=== PATIENT | female | born 1990 | race Caucasian/White ===

== ENCOUNTER 2016-04-20 21:15 | Emergency (ER) | payer SELFPAY ==
[2016-04-21] MEDS ORDERED: OXYCODONE-ACETAMINOPHEN 5-325 MG TABLET PO ONE (01:36)
[2016-04-21] MEDS ORDERED: ONDANSETRON 4 MG TAB.RAPDIS PO ONE (01:36)
--- NOTE | 2016-04-21 01:38 | ER Document Report ---
ED GI/ - General Chief Complaint: Lower Abdominal Pain Stated Complaint: DIFFICULTY URINATING,BACK PAIN Time seen by provider: 01:30 Notes: Patient is a 25-year-old female that comes emergency department for chief complaint of pain in her lower abdomen, worse in the middle and on the left side , and also pain in both lower parts of her back. She states that she feels like she needs to urinate but then when she tries to she only gets a few drops out and it is painful. She denies injury, fever, nausea or vomiting, vaginal discharge or bleeding. Last menstrual period 2 weeks ago. She does have a history of ovarian cysts. Past medical history of fibromyalgia and chronic lower back pain, takes gabapentin and tramadol. TRAVEL OUTSIDE OF THE [place] IN LAST 30 DAYS: No - Related Data Allergies/Adverse Reactions: Penicillins Adverse Reaction (Verified 04/21/16 02:52) Past Medical History - General Information source: Patient - Social History Smoking Status: Never Smoker Frequency of alcohol use: None Drug Abuse: None Lives with: Family Family History: Reviewed & Not Pertinent Patient has suicidal ideation: No Patient has homicidal ideation: No - Medical History Medical History: Negative Surgical Hx: Negative - Immunizations Immunizations up to date: Yes Hx Diphtheria, Pertussis, Tetanus Vaccination: Yes Review of Systems - Review of Systems Constitutional: No symptoms reported EENT: No symptoms reported Cardiovascular: No symptoms reported Respiratory: No symptoms reported Gastrointestinal: See HPI Genitourinary: See HPI Female Genitourinary: No symptoms reported Musculoskeletal: See HPI Skin: No symptoms reported Hematologic/Lymphatic: No symptoms reported Neurological/Psychological: No symptoms reported Physical Exam - Vital signs Interpretation: Normal - General General appearance: Anxious In distress: None - HEENT Head: Normocephalic, Atraumatic Eyes: Normal Pupils: PERRL - Respiratory Respiratory status: No respiratory distress Chest status: Nontender Breath sounds: Normal Chest palpation: Normal - Cardiovascular Rhythm: Regular Heart sounds: Normal auscultation Murmur: No - Abdominal Inspection: Normal Distension: No distension Bowel sounds: Normal Tenderness: Tender - There is lower abdominal tenderness over the suprapubic and left pelvic area Organomegaly: No organomegaly - Back Back: Normal, Nontender. No: Tender - No saddle anesthesia, no palpable tenderness noted, normal midline exam, normal upper and lower extremity range of motion, normal distal neurovascular exam - Extremities General upper extremity: Normal inspection, Nontender, Normal color, Normal ROM , Normal temperature General lower extremity: Normal inspection, Nontender, Normal color, Normal ROM , Normal temperature, Normal weight bearing. No: Ilya's sign - Neurological Neuro grossly intact: Yes Cognition: Normal Orientation: AAOx4 [place] Coma Scale Eye Opening: Spontaneous [place] Coma Scale Verbal: Oriented [place] Coma Scale Motor: Obeys Commands Estefani Coma Scale Total: 15 Speech: Normal Cranial nerves: Normal Cerebellar coordination: Normal Motor strength normal: LUE, RUE, LLE, RLE Sensory: Normal - Psychological Associated symptoms: Anxious - Skin Skin Temperature: Warm Skin Moisture: Dry Skin Color: Normal Course - Re-evaluation Re-evalutation: Unremarkable back exam, no saddle anesthesia. Normal upper and lower extremity strength, normal distal neurovascular exam. Patient has some tenderness over the lower abdominal area slightly worse on the left side. Ultrasound negative for any cyst or other abnormality, no free fluid. After patient receives straight catheterization her symptoms resolved. Patient declined pelvic exam. Patient given by mouth fluids, discussed that we would wait as she attempted to urinate again, discussed potential neurology referral because of patient's concerns (patient states that she keeps getting random neurologic problems like suddenly dropping items or like today when she was having trouble emptying her bladder). Patient's discharge instructions were prepared as we were waiting for her to urinate, went back to check she had urinated after by mouth fluids, on reentry into the room patient had left. - Laboratory Result Diagrams: 04/21/16 04:20 04/21/16 04:20 Laboratory results interpreted by me: 04/21/16 01:55 Urine Urobilinogen 2.0 H Discharge - Discharge Clinical Impression: Dysuria, Lower abdominal pain Condition: Stable Disposition: HOME, SELF-CARE Additional Instructions: No acute abnormality seen on her examination or workup. Avoid antihistamines currently because of urinary retention tonight, follow-up with primary care for additional management, follow-up with neurology if needed. Return to the emergency department for any returned or new concerning symptoms. Referrals: PAUL RUBY MD [ACTIVE STAFF] - Follow up as needed
[2016-04-21 02:15] LABS: AMORPHOUS SEDIMENT,URINE TRACE /HPF; APPEARANCE,URINE SLIGHTLY-CLOUDY; BILIRUBIN,URINE NEGATIVE (NEGATIVE); GLUCOSE, URINE NEGATIVE (NEGATIVE); KETONES,URINE NEGATIVE (NEGATIVE); LEUKOCYTE ESTERASE,URINE NEGATIVE (NEGATIVE); NITRITE,URINE NEGATIVE (NEGATIVE); PROTEIN,URINE NEGATIVE (NEGATIVE); URINE SPECIFIC GRAVITY 1.021
[2016-04-21 04:35] LABS: ABSOLUTE BASOPHILS # (AUTO) 0.1 10^3/uL (0.0-0.2); ABSOLUTE EOSINOPHILS # (AUTO) 0.3 10^3/uL (0.0-0.6); ABSOLUTE LYMPHOCYTES (AUTO) 2.4 10^3/uL (0.5-4.7); ABSOLUTE MONOCYTES (AUTO) 0.7 10^3/uL (0.1-1.4); ABSOLUTE NEUT (AUTO) 4.9 10^3/uL (1.7-8.2); BASOPHILS % (AUTO) 1.2 % (0-2); EOSINOPHILS % (AUTO) 4.1 % (0-6); HEMATOCRIT 38.3 % (36.0-47.0); HEMOGLOBIN 12.9 g/dL (12.0-15.5); HGB HCT DIFFERENCE 0.4; LYMPHOCYTES % (AUTO) 28.6 % (13-45); MEAN CORPUSCULAR HEMOGLOBIN 30.1 pg (27.0-33.4); MEAN CORPUSCULAR HGB CONC 33.7 g/dL (32.0-36.0); MEAN CORPUSCULAR VOLUME 89 fl (80-97); MONOCYTES % (AUTO) 7.8 % (3-13); RED CELL DISTRIBUTION WIDTH 13.8 % (11.5-14.0); SEGMENTED NEUTROPHILS % (AUTO) 58.3 % (42-78); WHITE BLOOD COUNT 8.4 10^3/uL (4.0-10.5)
[2016-04-21 04:47] LABS: ANION GAP 11 (5-19); BLOOD UREA NITROGEN 15 mg/dL (7-20); CALCIUM 9.3 mg/dL (8.4-10.2); CARBON DIOXIDE 26 mmol/L (22-30); CHLORIDE 104 mmol/L (98-107); CREATININE RESULT 0.61 mg/dL (0.52-1.25); GLUCOSE 105 mg/dL (75-110); SODIUM 140.6 mmol/L (137-145)
== END 2016-04-21 06:19 | disposition home or self-care (01) ==
LOC: ER 21:15
DX: R30.0 Dysuria (principal); R10.30 Lower abdominal pain, unspecified; M54.9 Dorsalgia, unspecified; Z88.0 Allergy status to penicillin
CPT/HCPCS: 99284; 51701; 36415; 85025; 81025; 80048; 81001; 76830; 93976; S0119

== ENCOUNTER → 2016-06-06 | Outpatient (CLI) | payer OTHER | LOC: RAD 06-04 11:37 | DX: M54.5 Low back pain (principal); M47.897 Other spondylosis, lumbosacral region | CPT/HCPCS: 72148 ==

== ENCOUNTER 2017-01-03 15:11 | Emergency (ER) | payer SELFPAY ==
[2017-01-03] MEDS ORDERED: ACETAMINOPHEN 325 MG TABLET PO ONE (15:33)
[2017-01-03 16:08] LABS: ABSOLUTE BASOPHILS # (AUTO) 0.1 10^3/uL (0.0-0.2); ABSOLUTE EOSINOPHILS # (AUTO) 0.3 10^3/uL (0.0-0.6); ABSOLUTE LYMPHOCYTES (AUTO) 2.4 10^3/uL (0.5-4.7); ABSOLUTE MONOCYTES (AUTO) 0.6 10^3/uL (0.1-1.4); ABSOLUTE NEUT (AUTO) 7.8 10^3/uL (1.7-8.2); EOSINOPHILS % (AUTO) 2.5 % (0-6); HEMOGLOBIN 14.3 g/dL (12.0-15.5); HGB HCT DIFFERENCE 0.9; LYMPHOCYTES % (AUTO) 21.3 % (13-45); MEAN CORPUSCULAR HEMOGLOBIN 30.8 pg (27.0-33.4); MEAN CORPUSCULAR VOLUME 91 fl (80-97); MONOCYTES % (AUTO) 5.6 % (3-13); RED BLOOD COUNT 4.63 10^6/uL (3.72-5.28); RED CELL DISTRIBUTION WIDTH 14.2 % (11.5-14.0); SEGMENTED NEUTROPHILS % (AUTO) 69.6 % (42-78); WHITE BLOOD COUNT 11.1 10^3/uL (4.0-10.5)
[2017-01-03 16:22] LABS: ANION GAP 12 (5-19); BLOOD UREA NITROGEN 14 mg/dL (7-20); CALCIUM 10.6 mg/dL (8.4-10.2); CARBON DIOXIDE 27 mmol/L (22-30); CHLORIDE 102 mmol/L (98-107); CREATININE RESULT 0.65 mg/dL (0.52-1.25); GLUCOSE 87 mg/dL (75-110); POTASSIUM 4.2 mmol/L (3.6-5.0); SODIUM 141.1 mmol/L (137-145)
--- NOTE | 2017-01-03 18:06 | RADIOLOGY REPORT (SQ) ---
EXAM DESCRIPTION: U/S OB TRANSVAG W/DOPPLER COMPLETED DATE/TIME: 01/03/2017 5:47 pm REASON FOR STUDY: = preg bleeding? COMPARISON: None. TECHNIQUE: Endovaginal static and realtime grayscale images acquired of the pelvis. Additional selec milagro spectral and color Doppler images recorded. All images stored on PACs. BHC.2 LIMITATIONS: None. FINDINGS: UTERUS: No visualized intrauterine . Uterus is 6.2 x 4.1 x 3.4 cm in size. Cerv ix closed, 2.3 cm in length. RIGHT ADNEXA: Normal ovary with normal vascular flow. Right ovary 2.2 x 1.7 x 1.6 cm. No adnexal free fluid. No adnexal masses. LEFT ADNEXA: Normal ovary with normal vascular flow. Left ovary 2.2 x 1.8 x 1.4 cm No adnexal free fluid. No adnexal masses. FREE FLUID: None. OTHER: No other significant finding. IMPRESSION: NO VISUALIZED INTRA- OR EXTRAUTERINE . bHCG LEVEL TOO LOW TO EXPECT VISUALIZATION OF . ECTOPIC CANNOT BE EXCLUDED. FOLLOW-UP ULTRASOUND AND SERIAL BHCG LEVELS STRONGLY RECOMMENDED TO ACCURATELY ASSESS STATU S. TECHNICAL DOCUMENTATION: JOB ID: [id number]- All Rights Reserved
--- NOTE | 2017-01-03 18:13 | ER Document Report ---
ED General - General Chief Complaint: Vaginal Bleeding Stated Complaint: VAGINAL BLEEDING Time Seen by Provider: 01/03/17 15:30 TRAVEL OUTSIDE OF THE [place] IN LAST 30 DAYS: No - HPI Patient complains to provider of: Vaginal bleeding Notes: Pt presents to the ED with complaints of vaginal bleeding and cramping. Pt states took home test on 12/30/16 and it was positive. Pt states she had light spotting and cramping that progressed into bleeding. Pt states the discharge is dark red. Pt states her LMP was 11/27/16. Pt denies fever. Pt is AOx4 and able to speak in full sentences. Pt is in NAD. Patient is a . Patient states currently taking vitamins. Patient denies any other complaints denies fevers chills nausea vomiting diarrhea. - Related Data Allergies/Adverse Reactions: Penicillins Adverse Reaction (Verified 04/21/16 02:52) Past Medical History - General Last Menstrual Period: 11/27/16 - Social History Smoking Status: Never Smoker Frequency of alcohol use: None Drug Abuse: None Family History: Reviewed & Not Pertinent Renal/ Medical History: Reports: Hx Kidney Stones. Denies: Hx Peritoneal Dialysis - Immunizations Immunizations up to date: Yes Hx Diphtheria, Pertussis, Tetanus Vaccination: Yes Review of Systems - Review of Systems Constitutional: No symptoms reported EENT: No symptoms reported Cardiovascular: No symptoms reported Respiratory: No symptoms reported Gastrointestinal: No symptoms reported Genitourinary: No symptoms reported Female Genitourinary: Vaginal bleeding Musculoskeletal: No symptoms reported Skin: No symptoms reported Hematologic/Lymphatic: No symptoms reported Neurological/Psychological: No symptoms reported Physical Exam - Vital signs Vitals: Temp Pulse Resp BP Pulse Ox 98.6 F 83 18 119/73 99 01/03/17 15:16 01/03/17 15:16 01/03/17 15:16 01/03/17 15:16 01/03/17 15:16 Interpretation: Normal - General General appearance: Appears well, Alert - HEENT Head: Normocephalic, Atraumatic Eyes: Normal Pupils: PERRL - Respiratory Respiratory status: No respiratory distress Chest status: Nontender Breath sounds: Normal Chest palpation: Normal - Cardiovascular Rhythm: Regular Heart sounds: Normal auscultation Murmur: No - Abdominal Inspection: Normal Distension: No distension Bowel sounds: Normal Tenderness: Nontender Organomegaly: No organomegaly - Back Back: Normal, Nontender - Extremities General upper extremity: Normal inspection, Nontender, Normal color, Normal ROM , Normal temperature General lower extremity: Normal inspection, Nontender, Normal color, Normal ROM , Normal temperature, Normal weight bearing. No: Ilya's sign - Neurological Neuro grossly intact: Yes Cognition: Normal Orientation: AAOx4 [place] Coma Scale Eye Opening: Spontaneous [place] Coma Scale Verbal: Oriented [place] Coma Scale Motor: Obeys Commands [place] Coma Scale Total: 15 Speech: Normal Motor strength normal: LUE, RUE, LLE, RLE Sensory: Normal - Psychological Associated symptoms: Normal affect, Normal mood - Skin Skin Temperature: Warm Skin Moisture: Dry Skin Color: Normal Course - Re-evaluation Re-evalutation: 01/03/17 20:31 Patient beta-hCG level returned at 31 ultrasound otherwise is negative. Patient was encouraged follow-up in 2 3 days for repeat beta hCG testing return to the ER if abdominal cramping worsen. Patient states understanding - Vital Signs Vital signs: Temp Pulse Resp BP Pulse Ox 98.1 F 77 20 104/66 100 01/03/17 18:12 01/03/17 18:12 01/03/17 18:12 01/03/17 18:12 01/03/17 18:12 - Laboratory Result Diagrams: 01/03/17 15:49 01/03/17 15:49 Laboratory results interpreted by me: 01/03/17 01/03/17 15:49 15:49 WBC 11.1 H RDW 14.2 H Calcium 10.6 H Beta HCG, Quant 31.20 H Discharge - Discharge Clinical Impression: Vaginal bleeding in Condition: Good Disposition: HOME, SELF-CARE Instructions: Bleeding During Early ([facility]), Ectopic Precaution ([facility]) Additional Instructions: At this time we cannot see a fetus on your ultrasound however your test is positive. I will highly recommend that she follow-up in the next 48-72 hours for repeat blood work. Continue to observe pelvic rest nothing inside in the vagina no sex no toys no tampons. Return to the ER if your symptoms worsen. Forms: Follow-Up Laboratory Testing
[2017-01-03 18:14] VITALS: BP 104/66
== END 2017-01-03 18:39 | disposition home or self-care (01) ==
LOC: ER 15:11
DX: O46.91 Antepartum hemorrhage, unspecified, first trimester (principal); R10.2 Pelvic and perineal pain; R10.9 Unspecified abdominal pain; Z3A.01 Less than 8 weeks gestation of pregnancy
CPT/HCPCS: 36415; 76817; 80048; 84702; 85025; 86900; 86901; 93976; 99284

== ENCOUNTER 2017-01-04 12:05 | Emergency (ER) | payer SELFPAY ==
[2017-01-04 12:35] VITALS: BP 118/67
--- NOTE | 2017-01-04 12:50 | ER Document Report ---
ED General - General Chief Complaint: Vag Bleeding, +preg <12wks Stated Complaint: VAGINAL BLEEDING/4-5WKS Time Seen by Provider: 01/04/17 12:45 Mode of Arrival: Ambulatory Information source: Patient Notes: 26-year-old female presents with complaints of continued vaginal bleeding and cramping. Patient was seen here yesterday had an hCG of 31 with a negative ultrasound. Patient notes cramping has since worsened and she is having bleeding worsening. TRAVEL OUTSIDE OF THE [place] IN LAST 30 DAYS: No - HPI Onset: Yesterday Onset/Duration: Persistent Quality of pain: Cramping Severity: Mild Pain Level: 1 Associated symptoms: None Exacerbated by: Denies Relieved by: Denies Similar symptoms previously: Yes Recently seen / treated by doctor: Yes - Related Data Allergies/Adverse Reactions: Penicillins Adverse Reaction (Verified 01/04/17 12:32) Past Medical History - Social History Smoking Status: Never Smoker Cigarette use (# per day): No Chew tobacco use (# tins/day): No Smoking Education Provided: No Family History: Reviewed & Not Pertinent Patient has suicidal ideation: No Renal/ Medical History: Reports: Hx Kidney Stones. Denies: Hx Peritoneal Dialysis - Immunizations Immunizations up to date: Yes Hx Diphtheria, Pertussis, Tetanus Vaccination: Yes Review of Systems - Review of Systems Notes: REVIEW OF SYSTEMS: CONSTITUTIONAL : Denies fever, chills, or sweats. Denies recent illness. EENT: Denies eye, ear, throat, or mouth pain or symptoms. Denies nasal or sinus congestion or discharge. Denies throat, tongue, or mouth swelling or difficulty swallowing. CARDIOVASCULAR: Denies chest pain. Denies palpitations or racing or irregular heart beat. Denies ankle edema. RESPIRATORY: Denies cough, cold, or chest congestion. Denies shortness of breath, difficulty breathing, or wheezing. GASTROINTESTINAL: Denies abdominal pain or distention. Denies nausea, vomiting , or diarrhea. Denies blood in vomitus, stools, or per rectum. Denies black, tarry stools. Denies constipation. GENITOURINARY: Denies difficulty urinating, painful urination, burning, frequency, blood in urine, or discharge. FEMALE GENITOURINARY: admits to pelvic pain, vaginal bleeding clots MUSCULOSKELETAL: Denies back or neck pain or stiffness. Denies joint pain or swelling. SKIN: Denies rash, lesions or sores. HEMATOLOGIC : Denies easy bruising or bleeding. LYMPHATIC: Denies swollen, enlarged glands. NEUROLOGICAL: Denies confusion or altered mental status. Denies passing out or loss of consciousness. Denies dizziness or lightheadedness. Denies headache. Denies weakness or paralysis or loss of use of either side. Denies problems with gait or speech. Denies sensory loss, numbness, or tingling. Denies seizures. PSYCHIATRIC: Denies anxiety or stress. Denies depression, suicidal ideation, or homicidal ideation. ALL OTHER SYSTEMS REVIEWED AND NEGATIVE. PHYSICAL EXAMINATION: GENERAL: Well-appearing, well-nourished and in no acute distress. HEAD: Atraumatic, normocephalic. EYES: Pupils equal round and reactive to light, extraocular movements intact, conjunctiva are normal. ENT: Nares patent, oropharynx clear without exudates. Moist mucous membranes. NECK: Normal range of motion, supple without lymphadenopathy LUNGS: Breath sounds clear to auscultation bilaterally and equal. No wheezes rales or rhonchi. HEART: Regular rate and rhythm without murmurs ABDOMEN: Soft, nontender, nondistended abdomen. No guarding, no rebound. No masses appreciated. Female : deferred Musculoskeletal: Normal range of motion, no pitting or edema. No cyanosis. NEUROLOGICAL: Cranial nerves grossly intact. Normal speech, normal gait. Normal sensory, motor exams PSYCH: Normal mood, normal affect. SKIN: Warm, Dry, normal turgor, no rashes or lesions noted. Dictation was performed using [employer] voice recognition software Physical Exam - Vital signs Vitals: Temp Pulse Resp BP Pulse Ox 98.6 F 79 18 118/67 98 01/04/17 12:33 01/04/17 12:33 01/04/17 12:33 01/04/17 12:33 01/04/17 12:33 Course - Re-evaluation Re-evalutation: 01/04/17 12:49 Unfortunately expect hCG levels have decreased that this is a miscarriage, labs pending, vitals are stable 01/04/17 14:47 Patient's hCG level has decreased from 31-12 and consistent with miscarriage Patient will be given pain control Strict return precautions regarding infectious process retained products of conception have discussed After performing a Medical Screening Examination, I estimate there is LOW risk for ACUTE APPENDICITIS, BOWEL OBSTRUCTION, ACUTE CHOLECYSTITIS, PERFORATED DIVERTICULITIS, INCARCERATED HERNIA, PANCREATITIS, PELVIC INFLAMMATORY DISEASE, PERFORATED ULCER, ECTOPIC , or TUBO-OVARIAN ABSCESS, thus I consider the discharge disposition reasonable. Also, there is no evidence or peritonitis , sepsis, or toxicity. I have reevaluated this patient multiple times and no significant life threatening changes are noted. The patient and I have discussed the diagnosis and risks, and we agree with discharging home with close follow-up with the understanding that symptoms and presentations can change. We also discussed returning to the Emergency Department immediately if new or worsening symptoms occur. We have discussed the symptoms which are most concerning (e.g., bloody stool, fever, changing or worsening pain, vomiting) that necessitate immediate return. - Vital Signs Vital signs: Temp Pulse Resp BP Pulse Ox 98.6 F 79 18 118/67 98 01/04/17 12:33 01/04/17 12:33 01/04/17 12:33 01/04/17 12:33 01/04/17 12:33 - Laboratory Result Diagrams: 01/04/17 13:53 Laboratory results interpreted by me: 01/04/17 01/04/17 13:53 13:53 RDW 14.2 H Beta HCG, Quant 12.14 H Discharge - Discharge Clinical Impression: Miscarriage Condition: Stable Disposition: HOME, SELF-CARE Instructions: Miscarriage ([facility]) Prescriptions: Hydrocodone/Acetaminophen [[place] 5-325 mg Tablet] 1 tab PO Q6 #14 tablet Referrals: [facility] [Provider Group] - Follow up in 3-5 days
[2017-01-04] MEDS ORDERED: ACETAMINOPHEN 325 MG TABLET PO ONE (13:30)
[2017-01-04 14:05] LABS: ABSOLUTE BASOPHILS # (AUTO) 0.1 10^3/uL (0.0-0.2); ABSOLUTE EOSINOPHILS # (AUTO) 0.3 10^3/uL (0.0-0.6); ABSOLUTE LYMPHOCYTES (AUTO) 2.7 10^3/uL (0.5-4.7); ABSOLUTE MONOCYTES (AUTO) 0.7 10^3/uL (0.1-1.4); BASOPHILS % (AUTO) 1.2 % (0-2); EOSINOPHILS % (AUTO) 2.7 % (0-6); HEMATOCRIT 40.8 % (36.0-47.0); HEMOGLOBIN 14.1 g/dL (12.0-15.5); HGB HCT DIFFERENCE 1.5; LYMPHOCYTES % (AUTO) 27.4 % (13-45); MEAN CORPUSCULAR HEMOGLOBIN 31.3 pg (27.0-33.4); MEAN CORPUSCULAR HGB CONC 34.6 g/dL (32.0-36.0); MEAN CORPUSCULAR VOLUME 90 fl (80-97); MONOCYTES % (AUTO) 7.4 % (3-13); RED BLOOD COUNT 4.52 10^6/uL (3.72-5.28); RED CELL DISTRIBUTION WIDTH 14.2 % (11.5-14.0); SEGMENTED NEUTROPHILS % (AUTO) 61.3 % (42-78); WHITE BLOOD COUNT 9.8 10^3/uL (4.0-10.5)
[2017-01-04] MEDS ORDERED: HYDROCODONE/ACETAMINOPHEN 5-325 MG TABLET PO ONE (14:48)
== END 2017-01-04 14:58 | disposition home or self-care (01) ==
LOC: ER 12:05
DX: O03.9 Complete or unspecified spontaneous abortion without complication (principal)
CPT/HCPCS: 36415; 84702; 85025; 99284

== ENCOUNTER 2017-02-01 00:41 | Emergency (ER) | payer SELFPAY ==
[2017-02-01 01:18] LABS: APPEARANCE,URINE SLIGHTLY-CLOUDY; BILIRUBIN,URINE NEGATIVE (NEGATIVE); GLUCOSE, URINE NEGATIVE (NEGATIVE); KETONES,URINE NEGATIVE (NEGATIVE); LEUKOCYTE ESTERASE,URINE TRACE (NEGATIVE); NITRITE,URINE NEGATIVE (NEGATIVE); PROTEIN,URINE 100 mg/dL (NEGATIVE); URINE SPECIFIC GRAVITY 1.027; UROBILINOGEN,URINE NEGATIVE mg/dL (<2.0)
--- NOTE | 2017-02-01 02:19 | ER Document Report ---
ED GI/ - General Chief Complaint: Abdominal Pain Stated Complaint: LEFT SIDE ABDOMINAL PAIN,BLOOD IN URINE Time Seen by Provider: 02/01/17 02:18 Notes: Patient is a 26-year-old female presents emergency department complaining of sudden onset left flank pain earlier this evening. She states that he came out of nowhere is gotten increasingly worse prior to arrival. She admits to nausea without vomiting. Also admits to an episode of hematuria prior to arrival. Admits to history of kidney stones. Does not have a urologist. Otherwise denies any fever, chills, abdominal pain. Primary care is [facility] TRAVEL OUTSIDE OF THE [place] IN LAST 30 DAYS: No - Related Data Allergies/Adverse Reactions: Penicillins Adverse Reaction (Verified 02/01/17 00:43) Past Medical History - Social History Smoking Status: Current Every Day Smoker Family History: Reviewed & Not Pertinent Renal/ Medical History: Reports: Hx Kidney Stones. Denies: Hx Peritoneal Dialysis - Immunizations Immunizations up to date: Yes Hx Diphtheria, Pertussis, Tetanus Vaccination: Yes Review of Systems - Review of Systems Constitutional: No symptoms reported Cardiovascular: No symptoms reported Respiratory: No symptoms reported Gastrointestinal: No symptoms reported Genitourinary: See HPI -: Yes All other systems reviewed and negative Physical Exam - Vital signs Vitals: Temp Pulse Resp BP Pulse Ox 98.3 F 102 H 22 H 107/74 98 02/01/17 00:45 02/01/17 00:45 02/01/17 00:45 02/01/17 00:45 02/01/17 00:45 - Notes Notes: PHYSICAL EXAM GENERAL: Alert, interacts well. LUNGS: Clear to auscultation bilaterally, no wheezes, rales, or rhonchi. No respiratory distress. HEART: Regular rate and rhythm. No murmurs, gallops, or rubs. ABDOMEN: Soft, nondistended, left suprapubic tenderness.. No guarding, rebound , or rigidity.. Bowel sounds present in all 4 quadrants. EXTREMITIES: Moves all 4 extremities spontaneously. No edema, radial and dorsalis pedis pulses 2/4 bilaterally. No cyanosis. Back: No evidence of CVA tenderness bilaterally. No spinous process or perimuscular tenderness. NEUROLOGICAL: Alert and oriented x4. Normal speech. PSYCH: Normal affect, normal mood. SKIN: Warm, dry, normal turgor. No rashes or lesions noted. Course - Re-evaluation Re-evalutation: 02/01/17 05:37 Patient is a 26-year-old female who is hemodynamic stable, no acute distress afebrile. Vital signs without any evidence of tachycardia, hypotension. patient tolerating p.o. without any difficulty. CT shows evidence of 2.6 mm stone at the UPJ without any evidence of hydronephrosis. No evidence of acute renal failure noted on chemistry. White blood cell count is 13 without evidence of left shift. 1+ blood cells in the urine with trace leukoesterase. Given these findings, low clinical suspicion for an infected stone. Patient given strict return precautions. Otherwise will discharge home on antibiotic complaint for urology follow-up. - Vital Signs Vital signs: Temp Pulse Resp BP Pulse Ox 98.8 F 87 18 113/80 99 02/01/17 06:20 02/01/17 06:20 02/01/17 06:20 02/01/17 06:20 02/01/17 06:20 - Laboratory Result Diagrams: 02/01/17 03:45 02/01/17 04:31 Laboratory results interpreted by me: 02/01/17 02/01/17 00:51 03:45 WBC 13.3 H RDW 14.1 H Absolute Neutrophils 9.6 H Urine Protein 100 H Urine Blood LARGE H Ur Leukocyte Esterase TRACE H - Diagnostic Test Radiology reviewed: Image reviewed, Reports reviewed Discharge - Discharge Clinical Impression: Left nephrolithiasis Condition: Good Disposition: HOME, SELF-CARE Additional Instructions: Please return to the ER with worsening pain, vomiting that is not responding to nausea medication, fevers, chills KIDNEY STONE: You are passing or have passed a kidney stone. These stones are usually due to increased calcium or uric acid concentrations in your urine. Stones within the kidney itself are not painful. The pain occurs as the stone leaves the kidney to pass down the long tube, called the ureter, leading to the bladder. If the stone is small, it will usually pass by itself. Most patients can pass the stone at home. You will usually receive medications for pain, nausea or vomiting, and sometimes a medication to assist in passing the kidney stone. However, if the pain is very severe or if vomiting prevents you from taking oral pain medications, you may need to return for further treatment. Drink three or four quarts of fluids per day. You will be given pain medication (if needed) and urine strainers. Strain all your urine to see if the stone passes. If your doctor has asked you to bring the stone in for analysis, return with the stone once it has passed. Return if pain or vomiting become severe, if you develop a high fever, if you are unable to pass your urine, or if other unusual symptoms occur. PAIN MEDICATION INJECTION: You have received an injection of a pain medication. You should experience significant pain relief within 45 minutes. This drug is a narcotic - - it will impair your judgement, slow your reaction time and make you sleepy ( as well as relieve your pain). Narcotics also can cause nausea. You should not drive, work with machinery, or perform any task requiring mental alertness until all effects of the medication are gone -- six to eight hours. Do not take any alcohol, or sedatives, and do not take any other medication without checking with your physician. ANTINAUSEA MEDICATION: You have been given a medication to suppress nausea and vomiting. This type of medication can be given as a shot, pill, or suppository. It will usually last for many hours. Pills and shots usually last six to eight hours, suppositories last about 12 hours. For the typical illness, only one or two doses of the medication may be necessary. Mild lightheadedness may occur. This type of medicine can cause drowsiness. Do not drive or operate dangerous machinery while under its influence. Do not mix with alcohol. See your doctor at once if you have muscle spasms or tightness, or uncontrollable motions (particularly of the neck, mouth, or jaw). Persistent vomiting or severe lightheadedness should also be evaluated by the physician. ORAL NARCOTIC MEDICATION: You have been given a prescription for pain control. This medication is a narcotic. It's best taken with food, as nausea can result if taken on an empty stomach. Don't operate machinery or drive within six hours of taking this medication. Do not combine this medicine with alcohol, or with any medication which can cause sedation (such as cold tablets or sleeping pills) unless you get permission from the physician. Narcotics tend to cause constipation. If possible, drink plenty of fluids and eat a diet high in fiber and fruits. Please be aware that prescription narcotics also have the potential for abuse. People become addicted to these medications because of the general sense of wellbeing that they induce. This feeling along with a significant reduction in tension, anxiety, and aggression provides a stimulating seductive quality to these drugs. Once your pain is under control, we encourage you to discard your unused narcotics. FLOMAX (tamsulosin): Flomax is a medicine that shrinks the prostate gland. It helps relieve symptoms of benign prostatic hypertrophy, such as frequent urination, weak stream, and inadequate emptying. It has been shown to dilate the ureter (tube leading from the kidney to the bladder) and help in passing kidney stones Flomax usually causes no side effects. You may notice slight tiredness and dizziness for a few days. Some patients develop nasal congestion. Rarely, impotence can occur. If the symptoms are bothersome and don't improve with continued use, call your doctor. Contact your doctor or return if you have fainting spells, severe weakness or dizziness, shortness of breath, or rash. FOLLOW-UP CARE: If you have been referred to a physician for follow-up care, call the physician s office for an appointment as you were instructed or within the next two days. If you experience worsening or a significant change in your symptoms, notify the physician immediately or return to the Emergency Department at any time for re-evaluation. Prescriptions: Ciprofloxacin HCl [Cipro 500 mg Tablet] 500 mg PO BID #14 tablet Ondansetron [Zofran Odt 4 mg Tablet] 1 - 2 tab PO Q4H PRN #15 tab.rapdis PRN Reason: For Nausea/Vomiting Oxycodone HCl/Acetaminophen [Percocet 5-325 mg Tablet] 1 - 2 tab PO Q4H PRN #15 tablet PRN Reason: Tamsulosin HCl [Flomax] 0.4 mg PO DAILY #10 cap.er.24h Referrals: [facility] [Provider Group] - Follow up as needed
[2017-02-01] MEDS ORDERED: MORPHINE SULFATE 10 MG/ML INJ IV ONE ×2 (03:53→05:34)
[2017-02-01 04:09] LABS: ABSOLUTE BASOPHILS # (AUTO) 0.1 10^3/uL (0.0-0.2); ABSOLUTE EOSINOPHILS # (AUTO) 0.2 10^3/uL (0.0-0.6); ABSOLUTE LYMPHOCYTES (AUTO) 2.6 10^3/uL (0.5-4.7); ABSOLUTE MONOCYTES (AUTO) 0.8 10^3/uL (0.1-1.4); ABSOLUTE NEUT (AUTO) 9.6 10^3/uL (1.7-8.2); BASOPHILS % (AUTO) 0.7 % (0-2); EOSINOPHILS % (AUTO) 1.7 % (0-6); HEMATOCRIT 38.2 % (36.0-47.0); HGB HCT DIFFERENCE 0.8; LYMPHOCYTES % (AUTO) 19.3 % (13-45); MEAN CORPUSCULAR HEMOGLOBIN 30.6 pg (27.0-33.4); MEAN CORPUSCULAR HGB CONC 33.9 g/dL (32.0-36.0); MEAN CORPUSCULAR VOLUME 90 fl (80-97); RED BLOOD COUNT 4.24 10^6/uL (3.72-5.28); RED CELL DISTRIBUTION WIDTH 14.1 % (11.5-14.0); SEGMENTED NEUTROPHILS % (AUTO) 72.3 % (42-78); WHITE BLOOD COUNT 13.3 10^3/uL (4.0-10.5)
--- NOTE | 2017-02-01 04:18 | RADIOLOGY REPORT (SQ) ---
EXAM DESCRIPTION: CT LTD RENAL STONE PROTOCOL ON COMPLETED DATE/TIME: 02/01/2017 4:10 am REASON FOR STUDY: left flank pain, hematuria COMPARISON: None. TECHNIQUE: CT scan of the abdomen and pelvis performed without intravenous or oral contrast. Images reviewed with lung, soft tissue, and bone windows. Reconstructed coronal and sagittal MPR images revi ewed. All images stored on PACS. All CT scanners at this facility use dose modulation, iterative reconstruction, and/or weight based d osing when appropriate to reduce radiation dose to as low as reasonably achievable (ALARA). [facility]: Dose Right [facility]: CareDose [facility]: Dose Right [facility]: Teradose 4D [facility]: [employer] RADIATION DOSE: mGy. LIMITATIONS: None. FINDINGS: LOWER CHEST: No significant findings. No nodules or infiltrates. NON-CONTRASTED LIVER, SPLEEN, ADRENALS: Evaluation limited by lack of IV contrast. No identified sign ificant masses. PANCREAS: No masses. No peripancreatic inflammatory changes. GALLBLADDER: No identified stones by CT criteria. No inflammatory changes to suggest cholecystitis. RIGHT KIDNEY AND URETER: No suspicious masses. Assessment limited by lack of IV contrast. No signif icant calcifications. No hydronephrosis or hydroureter. LEFT KIDNEY AND URETER: No suspicious masses. Assessment limited by lack of IV contrast. 2.6 mm vaughn culus UV junction. No hydronephrosis or hydroureter. AORTA AND RETROPERITONEUM: No aneurysm. No retroperitoneal masses or adenopathy. BOWEL AND PERITONEAL CAVITY: No obvious masses or inflammatory changes. No free fluid. APPENDIX: Normal. PELVIS, BLADDER, AND ABDOMINAL WALL:No abnormal masses. No free fluid. Bladder normal. BONES: No significant findings. OTHER: No other significant finding. IMPRESSION: 2.6 mm calculus UV junction on the left. No hydronephrosis or hydroureter. COMMENT: Quality ID # [id number]: Final reports with documentation of one or more dose reduction techniques (e.g., Automated exposure control, adjustment of the mA and/or kV according to patient size, use of iterative reconstruction technique) TECHNICAL DOCUMENTATION: JOB ID: [id number] [employer]- All Rights Reserved
[2017-02-01 05:12] LABS: ALANINE AMINOTRANSFERASE 38 U/L (9-52); ALBUMIN 4.2 g/dL (3.5-5.0); ALKALINE PHOSPHATASE 109 U/L (38-126); ANION GAP 11 (5-19); ASPARTATE AMINO TRANSFERASE 22 U/L (14-36); BILIRUBIN,DIRECT 0.4 mg/dL (0.0-0.4); BILIRUBIN,TOTAL 0.5 mg/dL (0.2-1.3); BLOOD UREA NITROGEN 13 mg/dL (7-20); CALCIUM 9.5 mg/dL (8.4-10.2); CARBON DIOXIDE 24 mmol/L (22-30); CHLORIDE 106 mmol/L (98-107); GLUCOSE 99 mg/dL (75-110); POTASSIUM 4.1 mmol/L (3.6-5.0); SODIUM 141.1 mmol/L (137-145); TOTAL PROTEIN 7.1 g/dL (6.3-8.2)
[2017-02-01] MEDS ORDERED: ONDANSETRON HCL INJ/PF 4 MG/2 ML SDV IV ONE (05:34)
[2017-02-01 06:23] VITALS: BP 113/80
== END 2017-02-01 06:10 | disposition home or self-care (01) ==
LOC: ER 00:41
DX: N20.1 Calculus of ureter (principal); R11.0 Nausea; R31.9 Hematuria, unspecified; R10.9 Unspecified abdominal pain; F17.200 Nicotine dependence, unspecified, uncomplicated
CPT/HCPCS: 99284; 36415; 87086; 85025; 81025; 80053; 81001; 76380; J2270; J2405

== ENCOUNTER → 2017-07-29 | Outpatient (CLI) | payer OTHER ==
--- NOTE | 2017-07-29 17:32 | RADIOLOGY REPORT (SQ) ---
EXAM DESCRIPTION: HYSTEROSALPINGOGRAM COMPLETED DATE/TIME: 07/29/2017 5:11 pm REASON FOR STUDY: INFERTILITY COMPARISON: CT abdomen pelvis 02/01/2017 PROCEDURE: PRE-PROCEDURE: Procedure was explained to the patient. She was told to expect cramping du ring the procedure, and possible spotting post procedure. PROCEDURE: Under direct visual inspection, the cervix was cannulated with the hysterosalpingogram ca theter and contrast injected. TECHNIQUE: Temporal fluoroscopic images acquired during the procedure stored to PACS. FLUOROSCOPY TIME: Less than 10 seconds 9 digital radiographic images saved to PACS. LIMITATIONS: None. FINDINGS: UTERUS: No identified anomalies. No synechia. RIGHT ADNEXA: Normal size fallopian tube. Free spill of contrast into the peritoneal cavity. LEFT ADNEXA: Normal size fallopian tube. Free spill of contrast into the peritoneal cavity. POST PROCEDURE: The patient tolerated the procedure with no adverse effects. IMPRESSION: NORMAL HYSTEROSALPINGOGRAM. COMMENT: Quality ID 145: Final reports for procedures using fluoroscopy that document radiation exp osure indices, or exposure time and number of fluorographic images (if radiation exposure indices are not available) TECHNICAL DOCUMENTATION: JOB ID: [id number] [employer]- All Rights Reserved Reading location - IP/workstation name: [email or web address]
== END ==
LOC: RAD 15:11
PROVIDERS: ATTEND Student in an Organized Health Care Education/Training Program
DX: N97.9 Female infertility, unspecified (principal)
CPT/HCPCS: 74740

== ENCOUNTER → 2017-08-24 | Outpatient (CLI) | payer OTHER ==
--- NOTE | 2017-08-24 10:17 | RADIOLOGY REPORT (SQ) ---
EXAM DESCRIPTION: T SPINE AP/LAT COMPLETED DATE/TIME: 08/24/2017 9:15 am REASON FOR STUDY: PAIN IN T SP (M54.6) COMPARISON: None. NUMBER OF VIEWS: Two views. TECHNIQUE: AP and lateral radiographic images acquired of the thoracic spine. LIMITATIONS: None. FINDINGS: MINERALIZATION: Normal. ALIGNMENT: Normal. No scoliosis. VERTEBRAE: No fracture or bone lesion. Maintained height, normal segmentation. DISCS: No significant loss of height or significant narrowing. No large osteophytes. HARDWARE: None in the spine. MEDIASTINUM AND SOFT TISSUES: Normal heart size and aortic contour. No soft tissue abnormality. VISUALIZED LUNG ESCALERA: Clear. OTHER: No other significant finding. IMPRESSION: NO SIGNIFICANT RADIOGRAPHIC FINDING IN THE THORACIC SPINE. TECHNICAL DOCUMENTATION: JOB ID: [id number] [employer]- All Rights Reserved Reading location - IP/workstation name: [email or web address]
--- NOTE | 2017-08-24 10:19 | RADIOLOGY REPORT (SQ) ---
EXAM DESCRIPTION: CERV SP 4 OR 5 VIEWS COMPLETED DATE/TIME: 08/24/2017 9:15 am REASON FOR STUDY: CERVICALGIA (M54.2) COMPARISON: None. NUMBER OF VIEWS: Five views. TECHNIQUE: AP, lateral, obliques and odontoid radiographic images acquired of the cervical spine. LIMITATIONS: None. FINDINGS: MINERALIZATION: Normal. ALIGNMENT: Reverse angulation. Muscle spasm versus positioning. VERTEBRAE: Vertebral bodies of normal height. DISCS: No significant osteophytes or sclerosis. Disc height maintained. FORAMINA: No osteophytes or foraminal narrowing. LATERAL AND POSTERIOR ELEMENTS: Facets, lateral masses and spinous processes without significant find ings. HARDWARE: None in the spine. SOFT TISSUES: No masses or calcifications. Lung apices clear. OTHER: No other significant finding. IMPRESSION: Reverse angulation on the lateral projection that may be related to positioning versus m uscle spasm. Study is otherwise unremarkable. TECHNICAL DOCUMENTATION: JOB ID: [id number] [employer]- All Rights Reserved Reading location - IP/workstation name: [email or web address]
--- NOTE | 2017-08-24 10:19 | RADIOLOGY REPORT (SQ) ---
EXAM DESCRIPTION: SACROILIAC JOINTS 3 OR MORE COMPLETED DATE/TIME: 08/24/2017 9:15 am REASON FOR STUDY: SACROILIAC PAIN (M53.3) COMPARISON: None. NUMBER OF VIEWS: Three views. TECHNIQUE: AP and oblique views of the sacroiliac joints. LIMITATIONS: None. FINDINGS: MINERALIZATION: Normal. BONES: No acute fracture or dislocation. No worrisome bone lesions. No significant osteophytes. JOINTS: The sacroiliac joints are patent. No unusual widening, sclerosis, or fusion. SOFT TISSUES: No soft tissue swelling. No radio-opaque foreign body. OTHER: No other significant finding. IMPRESSION: NORMAL STUDY OF THE SACROILIAC JOINTS. TECHNICAL DOCUMENTATION: JOB ID: [id number] [employer]- All Rights Reserved Reading location - IP/workstation name: [email or web address]
== END ==
LOC: RAD 08:52
PROVIDERS: ATTEND Pain Medicine Pain Medicine
DX: M54.6 Pain in thoracic spine (principal); M54.2 Cervicalgia; M53.3 Sacrococcygeal disorders, not elsewhere classified
CPT/HCPCS: 72050; 72070; 72202

== ENCOUNTER → 2018-04-07 | Outpatient (CLI) | payer OTHER | LOC: OD 11:09 | PROVIDERS: ATTEND Student in an Organized Health Care Education/Training Program | DX: O09.811 Supervision of pregnancy resulting from assisted reproductive technology, first trimester (principal) | CPT/HCPCS: 36415; 84702 ==

== ENCOUNTER 2018-04-17 23:51 | Emergency (ER) | payer OTHER ==
[2018-04-17 23:58] VITALS: BP 110/65
--- NOTE | 2018-04-18 00:25 | ER Document Report ---
ED General - General Mode of Arrival: Ambulatory Information source: Patient TRAVEL OUTSIDE OF THE [place] IN LAST 30 DAYS: No <ABHAY KYLE - Last Filed: 04/18/18 00:30> <SARA MALDONADO - Last Filed: 04/18/18 02:03> - General Chief Complaint: Lower Abdominal Pain Stated Complaint: ABDOMINAL PAIN Time Seen by Provider: 04/18/18 00:12 Notes: Patient is a 27 year old female, approximately 6 weeks with twins, presents to the emergency department complaining of lower abdominal pain onset today. Patient states the pain is intermittent and primarily located on the left side. She further describes the pain as a cramping. Patient states she has a history of ovarian cysts and expresses concern of a possible rupture. Patient denies any vaginal bleeding. Patient is currently taking progesterone, metformin (PCOS) and 10mg of Hydrocodone 4x daily for back pain. (ABHAY KYLE) - Related Data Allergies/Adverse Reactions: Penicillins Adverse Reaction (Verified 02/01/17 00:43) Past Medical History - General Information source: Patient - Social History Smoking Status: Unknown if Ever Smoked Family History: Reviewed & Not Pertinent Endocrine Medical History: Reports: Other - PCOS Renal/ Medical History: Reports: Hx Kidney Stones Past Surgical History: Reports: Other - Microdiscectomy, 1 level. - Immunizations Immunizations up to date: Yes Hx Diphtheria, Pertussis, Tetanus Vaccination: Yes <ABHAY KYLE - Last Filed: 04/18/18 00:30> Review of Systems - Review of Systems Constitutional: No symptoms reported EENT: No symptoms reported Cardiovascular: No symptoms reported Respiratory: No symptoms reported Gastrointestinal: See HPI, Abdominal pain Genitourinary: No symptoms reported Female Genitourinary: No symptoms reported Musculoskeletal: No symptoms reported Skin: No symptoms reported Hematologic/Lymphatic: No symptoms reported Neurological/Psychological: No symptoms reported -: Yes All other systems reviewed and negative <ABHAY KYLE - Last Filed: 04/18/18 00:30> Physical Exam <ABHAY KYLE - Last Filed: 04/18/18 00:30> - Vital signs Vitals: Temp Pulse Resp BP Pulse Ox 98.6 F 91 16 110/65 98 04/17/18 23:55 04/17/18 23:55 04/17/18 23:55 04/17/18 23:55 04/17/18 23:55 - Notes Notes: GENERAL: Alert, interacts well. No acute distress. HEAD: Normocephalic, atraumatic. EYES: Pupils equal, round, and reactive to light. Extraocular movements intact. ENT: Oral mucosa moist, tongue midline. NECK: Full range of motion. Supple. Trachea midline. LUNGS: Clear to auscultation bilaterally, no wheezes, rales, or rhonchi. No respiratory distress. HEART: Regular rate and rhythm. No murmurs, gallops, or rubs. ABDOMEN: Soft, obese, non-tender. Non-distended. Bowel sounds present in all 4 quadrants. EXTREMITIES: Moves all 4 extremities spontaneously. NEUROLOGICAL: Alert and oriented x3. Normal speech. PSYCH: Normal affect, normal mood. SKIN: Warm, dry, normal turgor. No rashes or lesions noted. (ABHAY KYLE) Course - Laboratory Result Diagrams: 04/18/18 00:40 <SARA MALDONADO - Last Filed: 04/18/18 02:03> - Vital Signs Vital signs: Temp Pulse Resp BP Pulse Ox 98.6 F 91 16 110/65 98 04/17/18 23:55 04/17/18 23:55 04/17/18 23:55 04/17/18 23:55 04/17/18 23:55 - Laboratory Laboratory results interpreted by me: 04/18/18 04/18/18 04/18/18 00:40 00:40 00:44 WBC 13.0 H RDW 14.1 H Absolute Neutrophils 8.7 H Beta HCG, Quant 83741.00 H Ur Leukocyte Esterase TRACE H Discharge <ABHAY KYLE - Last Filed: 04/18/18 00:30> <SARA MALDONADO - Last Filed: 04/18/18 02:03> - Discharge Clinical Impression: Pelvic cramping, Early stage of , Ovarian cyst affecting in first trimester, antepartum Condition: Stable Disposition: HOME, SELF-CARE Additional Instructions: Pelvic Pain in Lower abdominal pain during can have many causes. We look for seriou s causes such as appendicitis, tubal , miscarriage, placental separation, or urinary tract infection. Less serious causes of pain include corpus luteum cyst (ovarian cyst of ) or stretching of the pelvic tissues by the enlarging uterus. Sometimes the pain comes from the bowels. If no specific cause for the pain is found, we attribute the pain to stretching of the uterine ligaments. This is called "round ligament strain." It is not dangerous. Just rest until the pain goes away. Call us or come back for reexamination if any problems occur, such as: (1) Pain that becomes more severe, steady, or becomes concentrated in one specific area. Also, pain that is more severe with movement or coughing. (2) Vomiting that persists or becomes more frequent. (3) Blood in the vomitus, urine, or bowel movements. Blood in the stool may have a tarry or black appearance. (4) Shaking chills or fever greater than 100 degrees. (5) The abdomen becomes more distended or swollen. (6) Bowel movements cease. (7) Vaginal bleeding. You were provided copies of your 2 most recent hCG hormone levels. You are also provided copy of the ultrasound done this evening showing twin viable intrauterine is with bilateral ovarian cysts. You should follow-up with your [employer] doctor this week for recheck. RETURN TO THE EMERGENCY ROOM IF ANY NEW OR WORSENING SYMPTOMS. Referrals: BRYAN QUIROZ MD [Primary Care Provider] - Follow up in 3-5 days Scribe Attestation: 04/18/18 00:33 I personally performed the services described in the documentation, reviewed and edited the documentation which was dictated to the scribe in my presence, and it accurately records my words and actions. (SARA MALDONADO) Scribe Documentation - Scribe Written by Manolo:: Manolo Sanderson, 04/18/2018 00:27 acting as scribe for :: Philip <ABHAY KYLE - Last Filed: 04/18/18 00:30>
[2018-04-18 01:04] LABS: ABSOLUTE BASOPHILS # (AUTO) 0.1 10^3/uL (0.0-0.2); ABSOLUTE EOSINOPHILS # (AUTO) 0.3 10^3/uL (0.0-0.6); ABSOLUTE MONOCYTES (AUTO) 0.8 10^3/uL (0.1-1.4); ABSOLUTE NEUT (AUTO) 8.7 10^3/uL (1.7-8.2); BASOPHILS % (AUTO) 0.8 % (0-2); EOSINOPHILS % (AUTO) 2.1 % (0-6); HEMATOCRIT 36.8 % (36.0-47.0); HEMOGLOBIN 12.4 g/dL (12.0-15.5); LYMPHOCYTES % (AUTO) 23.4 % (13-45); MEAN CORPUSCULAR HEMOGLOBIN 30.3 pg (27.0-33.4); MEAN CORPUSCULAR HGB CONC 33.6 g/dL (32.0-36.0); MEAN CORPUSCULAR VOLUME 90 fl (80-97); MONOCYTES % (AUTO) 6.5 % (3-13); PLATELET COUNT 379 10^3/uL (150-450); RED BLOOD COUNT 4.07 10^6/uL (3.72-5.28); RED CELL DISTRIBUTION WIDTH 14.1 % (11.5-14.0); SEGMENTED NEUTROPHILS % (AUTO) 67.2 % (42-78); TOTAL CELLS COUNTED % (AUTO) 100 %
[2018-04-18 01:14] LABS: APPEARANCE,URINE SLIGHTLY-CLOUDY; BILIRUBIN,URINE NEGATIVE (NEGATIVE); COLOR,URINE YELLOW; GLUCOSE, URINE NEGATIVE (NEGATIVE); KETONES,URINE NEGATIVE (NEGATIVE); LEUKOCYTE ESTERASE,URINE TRACE (NEGATIVE); NITRITE,URINE NEGATIVE (NEGATIVE); PROTEIN,URINE NEGATIVE (NEGATIVE); UROBILINOGEN,URINE NEGATIVE mg/dL (<2.0)
--- NOTE | 2018-04-18 01:37 | RADIOLOGY REPORT (SQ) ---
EXAM DESCRIPTION: US TRANSVAGINAL COMPLETED DATE/TME: 04/18/2018 00:20 CLINICAL HISTORY: 27 years, Female, 6wks, pelvic cramps, L>R COMPARISON: None. TECHNIQUE: Transverse and longitudinal transvaginal sonographic images of the pelvis in a first trimester patient LIMITATIONS: None. FINDINGS: The uterus measures 8.4 x 5.5 x 4.4 cm. There is a twin intrauterine with 2 distinct gestational sacs as well as 2 distinct poles. Heart tones for baby A are 147 bpm, for baby B 144 bpm. Current ultrasound age for baby A is 5 weeks days, for baby B, 6 weeks 0 days. Assessment of the amniotic fluid volume and placenta is not performed due to early gestational age. Cervical length is 3.7 cm. The right ovary measures 5.2 x 3.7 x 3.6 cm, the left 3.4 x 3.5 x 2.6 cm. There is a small volume of free fluid. There are bilateral ovarian cysts, on the left measuring 3.3 x 2.6 cm, with mild complexity, septation and nodularity. Cyst on the right ovary measures 3.7 x 3.1 cm also showing mild complexity. No solid adnexal mass. IMPRESSION: Viable twin intrauterine gestation, as above. Small volume of free fluid in the pelvis. Slightly complex bilateral ovarian cysts. These could reflect corpus luteal cyst. However close obstetric follow-up recommended. copyright 2010 [employer]- All Rights Reserved
== END 2018-04-18 02:19 | disposition home or self-care (01) ==
LOC: ER 23:51
DX: O30.001 Twin pregnancy, unspecified number of placenta and unspecified number of amniotic sacs, first trimester (principal); R10.30 Lower abdominal pain, unspecified; R10.2 Pelvic and perineal pain; O34.81 Maternal care for other abnormalities of pelvic organs, first trimester; N83.202 Unspecified ovarian cyst, left side; N83.201 Unspecified ovarian cyst, right side; Z3A.01 Less than 8 weeks gestation of pregnancy; Z87.442 Personal history of urinary calculi; Z88.0 Allergy status to penicillin
CPT/HCPCS: 36415; 76817; 81001; 84702; 85025; 99284

== ENCOUNTER 2018-04-26 20:12 | Emergency (ER) | payer OTHER ==
[2018-04-26 21:29] LABS: ABSOLUTE BASOPHILS # (AUTO) 0.1 10^3/uL (0.0-0.2); ABSOLUTE EOSINOPHILS # (AUTO) 0.3 10^3/uL (0.0-0.6); ABSOLUTE LYMPHOCYTES (AUTO) 2.9 10^3/uL (0.5-4.7); ABSOLUTE MONOCYTES (AUTO) 0.9 10^3/uL (0.1-1.4); ABSOLUTE NEUT (AUTO) 9.3 10^3/uL (1.7-8.2); BASOPHILS % (AUTO) 0.8 % (0-2); EOSINOPHILS % (AUTO) 2.2 % (0-6); HEMATOCRIT 34.5 % (36.0-47.0); HEMOGLOBIN 11.8 g/dL (12.0-15.5); LYMPHOCYTES % (AUTO) 21.6 % (13-45); MEAN CORPUSCULAR HEMOGLOBIN 30.6 pg (27.0-33.4); MEAN CORPUSCULAR HGB CONC 34.2 g/dL (32.0-36.0); MEAN CORPUSCULAR VOLUME 90 fl (80-97); MONOCYTES % (AUTO) 6.8 % (3-13); PLATELET COUNT 493 10^3/uL (150-450); RED BLOOD COUNT 3.85 10^6/uL (3.72-5.28); RED CELL DISTRIBUTION WIDTH 13.9 % (11.5-14.0); SEGMENTED NEUTROPHILS % (AUTO) 68.6 % (42-78); TOTAL CELLS COUNTED % (AUTO) 100 %; WHITE BLOOD COUNT 13.5 10^3/uL (4.0-10.5)
[2018-04-26 21:33] LABS: APPEARANCE,URINE SLIGHTLY-CLOUDY; BILIRUBIN,URINE NEGATIVE (NEGATIVE); CALCIUM OXALATE CRYSTALS,URINE MODERATE /HPF; COLOR,URINE YELLOW; GLUCOSE, URINE NEGATIVE (NEGATIVE); KETONES,URINE TRACE mg/dL (NEGATIVE); LEUKOCYTE ESTERASE,URINE NEGATIVE (NEGATIVE); NITRITE,URINE NEGATIVE (NEGATIVE); PROTEIN,URINE NEGATIVE (NEGATIVE); URINE SPECIFIC GRAVITY 1.025
[2018-04-26 21:57] LABS: ALANINE AMINOTRANSFERASE 13 U/L (9-52); ALBUMIN 3.9 g/dL (3.5-5.0); ALKALINE PHOSPHATASE 66 U/L (38-126); ANION GAP 10 (5-19); ASPARTATE AMINO TRANSFERASE 20 U/L (14-36); BILIRUBIN,DIRECT 0.4 mg/dL (0.0-0.4); BILIRUBIN,TOTAL 0.4 mg/dL (0.2-1.3); BLOOD UREA NITROGEN 9 mg/dL (7-20); CALCIUM 9.5 mg/dL (8.4-10.2); CARBON DIOXIDE 25 mmol/L (22-30); CHLORIDE 102 mmol/L (98-107); GLUCOSE 62 mg/dL (75-110); LIPASE 98.4 U/L (23-300); POTASSIUM 4.4 mmol/L (3.6-5.0); SODIUM 137.3 mmol/L (137-145); TOTAL PROTEIN 7.1 g/dL (6.3-8.2)
--- NOTE | 2018-04-26 23:17 | ER Document Report ---
ED General - General Chief Complaint: Lower Abdominal Pain Stated Complaint: ABDOMINAL PAIN Time Seen by Provider: 04/26/18 21:16 Mode of Arrival: Ambulatory Information source: Patient TRAVEL OUTSIDE OF THE [place] IN LAST 30 DAYS: No - HPI Patient complains to provider of: Abdominal pain Onset: Other - This is a 27-year-old female with history of ovarian cyst as well as irritable bowel and chronic back pain that presents for evaluation of pelvic cramping in the setting of a twin gestation that is approximately 7 weeks in age. She denies any pelvic spotting vaginal bleeding or vaginal pain. Nothing is made this better nothing is made it worse she is not take anything to try and help with it. Denies any fevers or chills, abdominal pain, diarrhea constipation dysuria lightheadedness chest pain or shortness of breath. - Related Data Allergies/Adverse Reactions: Penicillins Adverse Reaction (Verified 02/01/17 00:43) Past Medical History - General Information source: Patient - Social History Smoking Status: Never Smoker Chew tobacco use (# tins/day): No Frequency of alcohol use: None Drug Abuse: None Family History: Reviewed & Not Pertinent Patient has suicidal ideation: No Patient has homicidal ideation: No Pulmonary Medical History: Reports: Hx Asthma Renal/ Medical History: Reports: Hx Kidney Stones. Denies: Hx Peritoneal Dialysis Past Surgical History: Reports: Other - Microdiscectomy, 1 level. - Immunizations Immunizations up to date: Yes Hx Diphtheria, Pertussis, Tetanus Vaccination: Yes Review of Systems - Review of Systems -: Yes All other systems reviewed and negative Physical Exam - Vital signs Vitals: Temp Pulse Resp BP Pulse Ox 99.3 F 89 16 109/65 98 04/26/18 20:24 04/26/18 20:24 04/26/18 20:24 04/26/18 20:24 04/26/18 20:24 Interpretation: Normal - General General appearance: Appears well, Alert - HEENT Head: Normocephalic, Atraumatic Eyes: Normal Pupils: PERRL - Respiratory Respiratory status: No respiratory distress Chest status: Nontender Breath sounds: Normal Chest palpation: Normal - Cardiovascular Rhythm: Regular Heart sounds: Normal auscultation Murmur: No - Abdominal Inspection: Normal Distension: No distension Bowel sounds: Normal Tenderness: Nontender Organomegaly: No organomegaly - Back Back: Normal, Nontender - Extremities General upper extremity: Normal inspection, Nontender, Normal color, Normal ROM, Normal temperature General lower extremity: Normal inspection, Nontender, Normal color, Normal ROM, Normal temperature, Normal weight bearing. No: Ilya's sign - Neurological Neuro grossly intact: Yes Cognition: Normal Orientation: AAOx4 [place] Coma Scale Eye Opening: Spontaneous [place] Coma Scale Verbal: Oriented [place] Coma Scale Motor: Obeys Commands Estefani Coma Scale Total: 15 Speech: Normal Motor strength normal: LUE, RUE, LLE, RLE Sensory: Normal - Psychological Associated symptoms: Normal affect, Normal mood - Skin Skin Temperature: Warm Skin Moisture: Dry Skin Color: Normal Course - Re-evaluation Re-evalutation: 04/27/18 00:05 There is a well-appearing 27-year-old female who presents for evaluation of right lower quadrant abdominal pain in the setting of a known . Has ovarian cyst demonstrated in the past. She has a benign abdominal examination here. Is afebrile, able tolerate p.o. is well-appearing. We will obtain ultrasound for possible torsion, labs were ordered prior to my assessment they will be reviewed. Ultrasound demonstrates a viable intrauterine to twin gestation. No obvious torsion she does still have ovarian cyst. She will be discharged with return precautions and expectant management encouraged follow-up with her hotel service supervisor moving forward for evaluation of her gestation. 04/27/18 00:07 Do not believe this represents more serious underlying cause of her abdominal pain such as but not limited to torsion, appendicitis, cholecystitis. - Vital Signs Vital signs: Temp Pulse Resp BP Pulse Ox 99.3 F 89 16 109/65 98 04/26/18 20:24 04/26/18 20:24 04/26/18 20:24 04/26/18 20:24 04/26/18 20:24 - Laboratory Result Diagrams: 04/26/18 20:30 04/26/18 20:30 Laboratory results interpreted by me: 04/26/18 04/26/18 04/26/18 20:30 20:30 20:30 WBC 13.5 H Hgb 11.8 L Hct 34.5 L Plt Count 493 H Absolute Neutrophils 9.3 H Creatinine 0.43 L Glucose 62 L Beta HCG, Quant 482161.00 H Urine Ketones TRACE H Urine Urobilinogen 2.0 H Discharge - Discharge Clinical Impression: Abdominal pain Qualifiers: Abdominal location: unspecified location Qualified Code(s): R10.9 - Unspecified abdominal pain Qualifiers: Weeks of gestation: 8 weeks Qualified Code(s): Z3A.08 - 8 weeks gestation of Twin gestation in first trimester Qualifiers: Multiple gestation type: unspecified Qualified Code(s): O30.001 - Twin , unspecified number of placenta and unspecified number of amniotic sacs, first trimester Condition: Stable Disposition: HOME, SELF-CARE Instructions: Abdominal Pain ([facility]) Additional Instructions: You were seen today in the emergency department for your abdominal pain. You had evaluation including a physical exam, blood work, and ultrasound of the pelvis. Your ultrasound shows a normal developing twin . The heartbeats were identified and they are normal. You had cysts on her ovaries which were identified. You should follow-up with your hotel service supervisor in the coming week for reevaluation. Return for worsening pain, inability to eat or drink or change in your symptoms.
[2018-04-27 00:20] VITALS: BP 112/74
--- NOTE | 2018-04-27 11:26 | RADIOLOGY REPORT (SQ) ---
EXAM DESCRIPTION: U/S 01921 + EACH ADDIT GEST; U/S OB TRANSVAG W/DOPPLER COMPLETED DATE/TIME: 04/26/2018 11:58 pm; 04/26/2018 11:56 pm REASON FOR STUDY: CONCERN FOR TORSION, RIGHT SIDED; concern for torsion right sided COMPARISON: OB ultrasound 04/18/2018 TECHNIQUE: Endovaginal static and realtime grayscale images acquired of the pelvis. Additional selec milagro spectral and color Doppler images recorded. All images stored on PACs. [id number] CLINICAL DATES: Last menses 03/04/2018 (clinical age 7 weeks 4 days, clinical due date 12/09/2018). LIMITATIONS: None. FINDINGS: FETUS: Dichorionic diamniotic twin intrauterine . ULTRASOUND EGA: 7 weeks 1 day for both embryos ULTRASOUND JOSE: 12/12/2018 EFW: Not applicable less than 20 weeks. CRL: 1 cm for both embryos FHR: Baby a, heart rate 155 beats per minute. Baby B heart rate 160 beats per minute. Beats per min marion. SURVEY: Too early to assess. AMNIOTIC FLUID: Adequate amount. PLACENTA: Not yet developed due to early gestation. SUBCHORIONIC BLEED: No. SIZE OF BLEED: Not applicable. UTERUS: No masses. No anomalies. Uterus is 9 x 7 x 5 cm in size CERVICAL LENGTH: 3 cm in length Closed. RIGHT ADNEXA: Right ovary measures 5.5 x 5.4 x 4.1 cm in size. A 3.6 cm right ovarian simple cyst is present, similar compared to Ob ultrasound 04/18/2018. Small amount of right adnexal free fluid. LEFT ADNEXA: Left ovary measures 4.2 x 3.4 x 3 cm in size. 3.4 cm left ovary simple cyst is present, similar to Ob ultrasound 04/18/2018. Trace left adnexal free fluid. FREE FLUID: Small amount of fluid in the right and left adnexa and posterior cul-de-sac. OTHER: This exam was performed at 2330 hours 02/24/2019. This was not dictated at the time of patient encounter. This report was called to the [facility] emergency room charge nurse, 1100 hours 04/27/2018. IMPRESSION: LIVING INTRAUTERINE TWIN . EGA 7 WEEKS 1 DAY BILATERAL OVARIAN SIMPLE CYSTS WITHOUT EVIDENCE OF OVARIAN TORSION. SMALL AMOUNT OF BILATERAL ADNEXA L AND FREE PELVIC CUL-DE-SAC FLUID. Trimester of : First - 0 to 13 weeks. TECHNICAL DOCUMENTATION: JOB ID: [id number] [employer]- All Rights Reserved rev-09/03 Reading location - IP/workstation name: [email or web address]
== END 2018-04-27 00:48 | disposition home or self-care (01) ==
LOC: ER 20:12
DX: O30.001 Twin pregnancy, unspecified number of placenta and unspecified number of amniotic sacs, first trimester (principal); O26.891 Other specified pregnancy related conditions, first trimester; R10.9 Unspecified abdominal pain; R10.2 Pelvic and perineal pain; R10.31 Right lower quadrant pain; M54.9 Dorsalgia, unspecified; G89.29 Other chronic pain; O99.511 Diseases of the respiratory system complicating pregnancy, first trimester; J45.909 Unspecified asthma, uncomplicated; Z3A.08 8 weeks gestation of pregnancy
CPT/HCPCS: 36415; 76802; 76817; 80053; 81001; 83690; 84702; 85025; 93976; 99284

== ENCOUNTER 2018-04-29 03:53 | Emergency (ER) | payer OTHER ==
[2018-04-29] MEDS ORDERED: ACETAMINOPHEN 325 MG TABLET PO ONE (04:11)
[2018-04-29] MEDS ORDERED: OSELTAMIVIR PHOSPHATE 75 MG CAPSULE PO ONE (04:17)
--- NOTE | 2018-04-29 04:32 | ER Document Report ---
ED General - General Chief Complaint: Flu Symptoms Stated Complaint: FEVER Time Seen by Provider: 04/29/18 04:05 Notes: Patient is a 27-year-old female, that is approximately 8 weeks gravid with twins that presents to the emergency department for chief complaint of subjective fever, chills, congestion, cough and body aches. She is also complaining of right flank pain. Patient states that the symptoms started over the past 24 hours, she reports having a fever with a T-max of 101 at home, she did administer Tylenol around 2:15 AM this morning. This morning she also had some right flank pain, and complaining of some vaginal pain as well but denies blood or abnormal discharge. She denies having any dysuria or hematuria. She reports having a history of kidney stones, as well as ovarian cyst, this feels similar to that. However the other symptoms including her congestion and body aches, are different, she was told by her OB to come to the ED to be checked for possible flu. She has had nausea but no vomiting, she states that the pain in her right side she currently rates it as a 5 out of 10 describes as a constant aching sensation. Past Medical History: Kidney stones, PCOS, ovarian cysts Past Surgical History: Back surgery Social History: Denies tobacco, alcohol or drug use. Family History: Reviewed and noncontributory for presenting illness Allergies: Reviewed, see documented allergy list. REVIEW OF SYSTEMS: Other than noted above, the 12 point review of systems was reviewed with the patient and were negative, all pertinent findings are included in the HPI. PHYSICAL EXAMINATION: Vital signs reviewed, nursing noted reviewed. GENERAL: Well-appearing, well-nourished and in no acute distress. HEAD: Atraumatic, normocephalic. EYES: Eyes appear normal, extraocular movements intact, sclera anicteric, conjunctiva are normal. ENT: nares patent, oropharynx clear without exudates. Moist mucous membranes. NECK: Normal range of motion, supple without lymphadenopathy LUNGS: Breath sounds clear to auscultation bilaterally and equal. No wheezes rales or rhonchi. HEART: Heart rate mildly tachycardic, regular rhythm ABDOMEN: Soft, mild right CVA tenderness, no anterior abdominal tenderness with palpation, normoactive bowel sounds. No rebound, guarding, or rigidity. No masses appreciated. EXTREMITIES: Nontender, good range of motion, no pitting or edema. NEUROLOGICAL: No focal neurological deficits. Moves all extremities spontaneously Motor and sensory grossly intact on exam. PSYCH: Normal mood, normal affect. SKIN: Warm, Dry, normal turgor, no rashes or lesions noted on exposed skin TRAVEL OUTSIDE OF THE [place] IN LAST 30 DAYS: No - Related Data Allergies/Adverse Reactions: Penicillins Allergy (Verified 04/29/18 04:26) hives, throat swelling Past Medical History - Social History Smoking Status: Never Smoker Frequency of alcohol use: None Drug Abuse: None Family History: Reviewed & Not Pertinent Patient has suicidal ideation: No Patient has homicidal ideation: No Pulmonary Medical History: Reports: Hx Asthma Renal/ Medical History: Reports: Hx Kidney Stones. Denies: Hx Peritoneal Dialysis Past Surgical History: Reports: Other - Microdiscectomy, 1 level. - Immunizations Immunizations up to date: Yes Hx Diphtheria, Pertussis, Tetanus Vaccination: Yes Physical Exam - Vital signs Vitals: Temp Pulse Resp BP Pulse Ox 98.6 F 113 H 16 111/65 98 04/29/18 03:57 04/29/18 03:57 04/29/18 03:57 04/29/18 03:57 04/29/18 03:57 Course - Re-evaluation Re-evalutation: Patient seen and examined vital signs reviewed. Laboratory data and imaging were ordered as appropriate for the patient's presenting symptoms and complaint, with consideration of any critical or life threatening conditions that may be associated with their obtained history and exam as noted above. Patient was treated with Pyridium and started on Macrobid, for questionable UTI, will send for culture, only 1+ bacteria, trace blood, no supporting signs of UTI such as white blood cells, leukocyte esterase, or nitrites. Patient was having flank pain, bedside ultrasound was performed, no hydronephrosis, patient did have a history of kidney stones, there was trace blood in her urine, it is possible she is passing a small stone, that is nonobstructing. We will also treat her for influenza, she is had body aches and symptoms consistent with that including a cough and URI symptoms, given that she is , will start Tamiflu, given a dose in the ED. I did also perform bedside transabdominal ultrasound, and was able to visualize and obtain Doppler heartbeat, and tones, for both fetuses, and averaged heart rate in the mid 140s for both. I did go to reevaluate the patient, and she was complaining of worsened right flank pain, therefore patient was given a dose of IV morphine, and some Phenergan as she was having some associated nausea, and given some IV fluids, believe the patient may be passing a small stone, low suspicion for obstruction given no hydronephrosis on ultrasound, patient does take a significant amount of pain medication at home, and will be difficult to control her pain, I discussed this with her. Patient was then again reevaluated, she was feeling better, at this point she can be discharged home, she is agreeable, advised with strict return precautions. Evaluation was most consistent with right flank pain, possible small stone, will discharge her home, advised to take her home pain medication, will give p rescription for Tamiflu, as patient likely has influenza, and is , and with benefit from being on antiviral, will also give her Macrobid, as she had +1 bacteria, likely contaminant in this case, but as she is , I want to cover for possible UTI and culture is pending, despite having very low suspicion. Results were discussed with the patient at this point, after careful considerati on I feel that that patient can be discharged from the emergency department, the patient was educated treatments and reasons to return to the emergency department based on their presumed diagnosis as noted above, they were advised to followup with a primary care physician in 2-3 days. Patient was agreeable to plan of care. *Note is created using voice recognition software and may contain spelling, syntax or grammatical errors. Laboratory 04/29/18 04:00 Urine Color YELLOW Urine Appearance CLEAR Urine pH 6.0 Ur Specific [place] 1.014 Urine Protein NEGATIVE Urine Glucose (UA) NEGATIVE Urine Ketones NEGATIVE Urine Blood SMALL H Urine Nitrite NEGATIVE Urine Bilirubin NEGATIVE Urine Urobilinogen NEGATIVE Ur Leukocyte Esterase NEGATIVE Urine WBC (Auto) 2 Urine RBC (Auto) 1 Urine Bacteria (Auto) 1+ Squamous Epi Cells Auto 1 Urine Mucus (Auto) RARE Urine Ascorbic Acid NEGATIVE - Vital Signs Vital signs: Temp Pulse Resp BP Pulse Ox 99.3 F 110 H 24 H 115/67 100 04/29/18 05:45 04/29/18 05:45 04/29/18 05:45 04/29/18 05:45 04/29/18 05:45 - Laboratory Laboratory results interpreted by me: 04/29/18 04:00 Urine Blood SMALL H Procedures - Ultrasound/Bedside Ultrasound/Bedside Ultrasound: Other - Right Limited Renal US Notes: Procedure: Bedside limited renal ultrasound. Indication: Right flank pain. Findings: The right kidney was identified, appeared normal in size and contour, no cysts identified, no stones visualized no hydronephrosis noted either. No acute findings. The liver was visualized as well, appeared normal in contour. Discharge - Discharge Clinical Impression: Flank pain, Influenza Condition: Stable Disposition: HOME, SELF-CARE Instructions: Flank Pain ([facility]) Additional Instructions: Please take all medications as prescribed, and please follow-up with the [facility], if you are having any worsening symptoms, your pain is not controlled at home, or if you have any worsening vomiting, and fevers or not improving, do not hesitate to return to the emergency department. Prescriptions: Nitrofurantoin Macrocrystal [Macrodantin] 100 mg PO BID #14 capsule Oseltamivir Phosphate [Tamiflu 75 mg Capsule] 75 mg PO BID #9 capsule Phenazopyridine HCl [Pyridium 200 mg Tablet] 200 mg PO TID #9 tablet Promethazine HCl [Phenergan 25 mg Tablet] 1 tab PO Q8H PRN #15 tablet PRN Reason: nausea/vomiting Referrals: BRYAN QUIROZ MD [ACTIVE STAFF] - Follow up in 3-5 days
[2018-04-29 04:48] LABS: APPEARANCE,URINE CLEAR; BILIRUBIN,URINE NEGATIVE (NEGATIVE); COLOR,URINE YELLOW; GLUCOSE, URINE NEGATIVE (NEGATIVE); KETONES,URINE NEGATIVE (NEGATIVE); LEUKOCYTE ESTERASE,URINE NEGATIVE (NEGATIVE); NITRITE,URINE NEGATIVE (NEGATIVE); PROTEIN,URINE NEGATIVE (NEGATIVE); URINE SPECIFIC GRAVITY 1.014; UROBILINOGEN,URINE NEGATIVE mg/dL (<2.0)
[2018-04-29] MEDS ORDERED: NITROFURANTOIN MONOHYD/M-CRYST 100 MG CAPSULE PO ONE (05:26)
[2018-04-29] MEDS ORDERED: PHENAZOPYRIDINE HCL 200 MG TABLET PO ONE (05:30)
[2018-04-29] MEDS: MORPHINE SULFATE 10 MG/ML INJ IM ONE ×2 (06:13→07:59)
[2018-04-29] MEDS: PROMETHAZINE HCL INJ 25 MG/1 ML VIAL IM ONE ×2 (06:13→07:59)
[2018-04-29] MEDS ORDERED: MORPHINE SULFATE 10 MG/ML INJ IV ONE (06:17)
[2018-04-29] MEDS ORDERED: NORMAL SALINE 1000 ML 1,000 ML IV ONE (06:17)
[2018-04-29] MEDS ORDERED: PROMETHAZINE HCL INJ 25 MG/1 ML VIAL IV ONE (06:17)
[2018-04-29 08:05] VITALS: BP 110/75
== END 2018-04-29 08:04 | disposition home or self-care (01) ==
LOC: ER 03:53
DX: O30.001 Twin pregnancy, unspecified number of placenta and unspecified number of amniotic sacs, first trimester (principal); J11.1 Influenza due to unidentified influenza virus with other respiratory manifestations; R10.9 Unspecified abdominal pain; R50.9 Fever, unspecified; Z3A.08 8 weeks gestation of pregnancy; Z87.442 Personal history of urinary calculi; Z88.0 Allergy status to penicillin
CPT/HCPCS: 99284; 96372; 96374; 87086; 81001; J2270; J3490 ×2; J2550; J7030; J8499

== ENCOUNTER 2018-06-06 11:53 | Emergency (ER) | payer OTHER ==
--- NOTE | 2018-06-06 13:42 | ER Document Report ---
ED General - General Chief Complaint: Vaginal Bleeding Stated Complaint: ABDOMINAL PAIN, VAGINAL BLEEDING Time Seen by Provider: 06/06/18 13:21 Notes: Patient is a 27-year-old female, , currently 13 weeks and 3 days gravid with twins that presents to the emergency department for chief complaint of pelvic cramping and vaginal spotting. Patient reports noting spotting this morning, that concerned her, and she is been having bilateral lower pelvic cramping associated with this. She denies having any fevers, chills, night sweats, dysuria, hematuria, denies noting any vaginal discharge with a spotting. 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 This was initiated with IUI therapy. At this time she currently rates her pain as a 2 out of 10 describes as a pelvic ache, is not concerned for any need for medication to help control her pain at this time. No other complaints at this time. Past Medical History: Denies chronic medical conditions Past Surgical History: Hernia repair, microdiscectomy Social History: Former smoker, denies alcohol or drug use. Family History: Reviewed and noncontributory for presenting illness Allergies: Reviewed, see documented allergy list. REVIEW OF SYSTEMS: Other than noted above, the 12 point review of systems was reviewed with the patient and were negative, all pertinent findings are included in the HPI. PHYSICAL EXAMINATION: Vital signs reviewed, nursing noted reviewed. GENERAL: Well-appearing, well-nourished and in no acute distress. HEAD: Atraumatic, normocephalic. EYES: Eyes appear normal, extraocular movements intact, sclera anicteric, conjunctiva are normal. ENT: nares patent, oropharynx clear without exudates. Moist mucous membranes. NECK: Normal range of motion, supple without lymphadenopathy LUNGS: Breath sounds clear to auscultation bilaterally and equal. No wheezes rales or rhonchi. HEART: Heart rate mildly tachycardic, regular rhythm. No audible murmur. ABDOMEN: Soft, gravid, nontender, normoactive bowel sounds. No rebound, guarding, or rigidity. No masses appreciated. EXTREMITIES: Nontender, good range of motion, no pitting or edema. NEUROLOGICAL: No focal neurological deficits. Moves all extremities spontaneously Motor and sensory grossly intact on exam. PSYCH: Normal mood, normal affect. SKIN: Warm, Dry, normal turgor, no rashes or lesions noted on exposed skin TRAVEL OUTSIDE OF THE [place] IN LAST 30 DAYS: No - Related Data Allergies/Adverse Reactions: Penicillins Allergy (Verified 06/06/18 11:58) hives, throat swelling Past Medical History - Social History Smoking Status: Former Smoker Family History: Reviewed & Not Pertinent Patient has suicidal ideation: No Patient has homicidal ideation: No Pulmonary Medical History: Reports: Hx Asthma Renal/ Medical History: Reports: Hx Kidney Stones. Denies: Hx Peritoneal Dialysis Past Surgical History: Reports: Other - Microdiscectomy, 1 level. - Immunizations Immunizations up to date: Yes Hx Diphtheria, Pertussis, Tetanus Vaccination: Yes Physical Exam - Vital signs Vitals: Temp Pulse Resp BP Pulse Ox 98.8 F 107 H 16 108/62 98 06/06/18 12:23 06/06/18 12:23 06/06/18 12:23 06/06/18 12:23 06/06/18 12:23 Course - Re-evaluation Re-evalutation: Patient seen and examined vital signs reviewed. Laboratory data and imaging were ordered as appropriate for the patient's presenting symptoms and complaint, with consideration of any critical or life threatening conditions that may be associated with their obtained history and exam as noted above. Including OB ultrasound, quantitative hCG, and RhoGam workup and urinalysis. Results were reviewed when available and demonstrated unremarkable OB ultrasound, urinalysis was negative and unremarkable as well The patient was re-evaluated and was stable Evaluation was most consistent with vaginal bleeding in Results were discussed with the patient at this point, after careful consideration I feel that that patient can be discharged from the emergency department, the patient was educated treatments and reasons to return to the emergency department based on their presumed diagnosis as noted above, they were advised to followup with a primary care physician in 2-3 days. Patient was agreeable to plan of care. *Note is created using voice recognition software and may contain spelling, syntax or grammatical errors. Laboratory 06/06/18 12:10 Urine Color YELLOW Urine Appearance CLEAR Urine pH 7.0 Ur Specific [place] 1.012 Urine Protein NEGATIVE Urine Glucose (UA) NEGATIVE Urine Ketones NEGATIVE Urine Blood SMALL H Urine Nitrite NEGATIVE Urine Bilirubin NEGATIVE Urine Urobilinogen NEGATIVE Ur Leukocyte Esterase NEGATIVE Urine WBC (Auto) 1 Urine RBC (Auto) 1 Urine Bacteria (Auto) TRACE Squamous Epi Cells Auto <1 Urine Mucus (Auto) RARE Urine Ascorbic Acid NEGATIVE Obstetrics Ultrasound 06/06/18 13:40 IMPRESSION: Living twin , estimated gestational age 13 weeks 3 days Trimester of : First - 0 to 13 weeks. - Vital Signs Vital signs: Temp Pulse Resp BP Pulse Ox 98.8 F 107 H 16 108/62 98 06/06/18 12:23 06/06/18 12:23 06/06/18 12:23 06/06/18 12:23 06/06/18 12:23 - Laboratory Laboratory results interpreted by me: 06/06/18 12:10 Urine Blood SMALL H Discharge - Discharge Clinical Impression: Vaginal bleeding affecting early Condition: Stable Disposition: HOME, SELF-CARE Instructions: Bleeding During Early ([facility]) Additional Instructions: Please follow-up with OXIDATION ENGINEER, continue taking vitamins, and pelvic rest for the next 2 weeks. Referrals: [facility] [Provider Group] - Follow up in 3-5 days
[2018-06-06 14:19] LABS: APPEARANCE,URINE CLEAR; BILIRUBIN,URINE NEGATIVE (NEGATIVE); COLOR,URINE YELLOW; GLUCOSE, URINE NEGATIVE (NEGATIVE); KETONES,URINE NEGATIVE (NEGATIVE); LEUKOCYTE ESTERASE,URINE NEGATIVE (NEGATIVE); NITRITE,URINE NEGATIVE (NEGATIVE); PROTEIN,URINE NEGATIVE (NEGATIVE); URINE SPECIFIC GRAVITY 1.012; UROBILINOGEN,URINE NEGATIVE mg/dL (<2.0)
--- NOTE | 2018-06-06 15:33 | RADIOLOGY REPORT (SQ) ---
EXAM DESCRIPTION: U/S [id number] TRNABD 1GES W/ODOP; U/S 70049 + EACH ADDIT GEST COMPLETED DATE/TIME: 06/06/2018 2:58 pm REASON FOR STUDY: vaginal bleeding, +hcg with twins; VAG BLEEDING, TWIN IUP COMPARISON: None. TECHNIQUE: Transabdominal static and realtime grayscale images acquired of the pelvis. Additional se lected spectral and color Doppler images recorded. All images stored on PACs. bHCG: Not available CLINICAL DATES: Last menses 03/07/2018 (13 weeks 0 days) LIMITATIONS: None. FINDINGS: FETUS: Dichorionic diamniotic twin is present ULTRASOUND EGA: Twin A, 13 weeks 2 days. Twin B 13 weeks 3 days ULTRASOUND JOSE: 12/10/2018 EFW: Not applicable less than 20 weeks. CRL: 7 cm baby A, 7 cm baby B FHR: Twin A 171 beats per minute. Twin B 163 beats per minute SURVEY: Too early to assess. AMNIOTIC FLUID: Adequate amount. PLACENTA: Not yet developed due to early gestation. SUBCHORIONIC BLEED: No SIZE OF BLEED: Not applicable. UTERUS: No masses. No anomalies. Uterus is 14 x 11 x 8 cm in size CERVICAL LENGTH: 3.5 cm Closed. RIGHT ADNEXA: Not visualized due to bowel gas. Poor acoustic window LEFT ADNEXA: Not visualized due to bowel gas. Poor acoustic window. FREE FLUID: None. OTHER: No other significant finding. IMPRESSION: Living twin , estimated gestational age 13 weeks 3 days Trimester of : First - 0 to 13 weeks. TECHNICAL DOCUMENTATION: JOB ID: [id number] [employer]- All Rights Reserved rev Reading location - IP/workstation name: [email or web address]
--- NOTE | 2018-06-06 15:33 | RADIOLOGY REPORT (SQ) ---
EXAM DESCRIPTION: U/S [id number] TRNABD 1GES W/ODOP; U/S 29211 + EACH ADDIT GEST COMPLETED DATE/TIME: 06/06/2018 2:58 pm REASON FOR STUDY: vaginal bleeding, +hcg with twins; VAG BLEEDING, TWIN IUP COMPARISON: None. TECHNIQUE: Transabdominal static and realtime grayscale images acquired of the pelvis. Additional se lected spectral and color Doppler images recorded. All images stored on PACs. bHCG: Not available CLINICAL DATES: Last menses 03/07/2018 (13 weeks 0 days) LIMITATIONS: None. FINDINGS: FETUS: Dichorionic diamniotic twin is present ULTRASOUND EGA: Twin A, 13 weeks 2 days. Twin B 13 weeks 3 days ULTRASOUND JOSE: 12/10/2018 EFW: Not applicable less than 20 weeks. CRL: 7 cm baby A, 7 cm baby B FHR: Twin A 171 beats per minute. Twin B 163 beats per minute SURVEY: Too early to assess. AMNIOTIC FLUID: Adequate amount. PLACENTA: Not yet developed due to early gestation. SUBCHORIONIC BLEED: No SIZE OF BLEED: Not applicable. UTERUS: No masses. No anomalies. Uterus is 14 x 11 x 8 cm in size CERVICAL LENGTH: 3.5 cm Closed. RIGHT ADNEXA: Not visualized due to bowel gas. Poor acoustic window LEFT ADNEXA: Not visualized due to bowel gas. Poor acoustic window. FREE FLUID: None. OTHER: No other significant finding. IMPRESSION: Living twin , estimated gestational age 13 weeks 3 days Trimester of : First - 0 to 13 weeks. TECHNICAL DOCUMENTATION: JOB ID: [id number] [employer]- All Rights Reserved rev Reading location - IP/workstation name: [email or web address]-
[2018-06-06 16:10] VITALS: BP 99/64
== END 2018-06-06 16:11 | disposition home or self-care (01) ==
LOC: ER 11:53
DX: O20.9 Hemorrhage in early pregnancy, unspecified (principal); O26.891 Other specified pregnancy related conditions, first trimester; R10.2 Pelvic and perineal pain; R00.0 Tachycardia, unspecified; O30.041 Twin pregnancy, dichorionic/diamniotic, first trimester; O99.511 Diseases of the respiratory system complicating pregnancy, first trimester; J45.909 Unspecified asthma, uncomplicated; O09.811 Supervision of pregnancy resulting from assisted reproductive technology, first trimester; Z3A.13 13 weeks gestation of pregnancy; Z88.0 Allergy status to penicillin; Z87.891 Personal history of nicotine dependence
CPT/HCPCS: 36415; 76801; 76802; 81001; 84702; 99284

== ENCOUNTER 2018-07-25 18:40 | Emergency (ER) | payer OTHER ==
--- NOTE | 2018-07-25 19:21 | ER Document Report ---
ED Medical Screen (RME) - General Chief Complaint: Eye Pain Stated Complaint: EYE PAIN Time Seen by Provider: 07/25/18 19:11 Mode of Arrival: Ambulatory Information source: Patient Notes: Patient is an otherwise healthy 28-year-old female presenting to the emergency department from the urgent care for complaint of eye pain and bulging over the last 2 weeks. Patient reports she had a upper respiratory tract infection and had been coughing and sneezing a lot. She reports severe pain to the left eye. States when she tries to open her eye it automatically closes. Patient does wear contact lenses, she does not have any in at this time. Tetracaine ordered to bedside as well as I tray, examination deferred until patient is seen in the room. I have greeted and performed a rapid initial assessment of this patient. A comprehensive ED assessment and evaluation of the patient, analysis of test results and completion of the medical decision making process will be conducted by additional ED providers. Dictation of this chart was performed using voice recognition software; therefore, there may be some unintended grammatical errors. TRAVEL OUTSIDE OF THE [place] IN LAST 30 DAYS: No - Related Data Allergies/Adverse Reactions: Penicillins Allergy (Verified 06/06/18 11:58) hives, throat swelling Past Medical History Pulmonary Medical History: Reports: Hx Asthma Renal/ Medical History: Reports: Hx Kidney Stones. Denies: Hx Peritoneal Dialysis Past Surgical History: Reports: Other - Microdiscectomy, 1 level. - Immunizations Immunizations up to date: Yes Hx Diphtheria, Pertussis, Tetanus Vaccination: Yes Physical Exam - Vital signs Vitals: Temp Pulse Resp BP Pulse Ox 98.1 F 108 H 16 134/70 H 98 07/25/18 18:58 07/25/18 18:58 07/25/18 18:58 07/25/18 18:58 07/25/18 18:58 Course - Vital Signs Vital signs: Temp Pulse Resp BP Pulse Ox 98.1 F 108 H 16 134/70 H 98 07/25/18 18:58 07/25/18 18:58 07/25/18 18:58 07/25/18 18:58 07/25/18 18:58
--- NOTE | 2018-07-25 20:08 | ER Document Report ---
ED Eye Complaint - General Chief Complaint: Eye Pain Stated Complaint: EYE PAIN Time Seen by Provider: 07/25/18 20:05 Mode of Arrival: Ambulatory Information source: Patient Notes: HISTORY OF PRESENT ILLNESS: Patient is a 28-year-old female who is 21 weeks with twins and no significant past medical history who presents with facial pain and swelling on the left for the past 2 weeks that is associated with left-sided headache and increased clear drainage from her left eye. Patient denies vision loss or injury. Location: Left face/eye Onset: 2 weeks ago Provocation: Movement Quality: "Throbbing headache" Radiation: None Severity: Moderate Timing: Persistent History of headaches: None Recent head injury: None Vision changes: None Trouble walking: None Associated symptoms: No fevers or chills, no cough or congestion REVIEW OF SYSTEMS: CONSTITUTIONAL : Denies fever or chills, no sweats. Denies recent illness. EENT: Positive for facial swelling and sinus congestion with clear drainage from the left eye. CARDIOVASCULAR: Denies chest pain. RESPIRATORY: Denies cough, cold, or chest congestion. Denies shortness of breath, difficulty breathing, or wheezing. GASTROINTESTINAL: Denies abdominal pain. Denies nausea, vomiting, or diarrhea. Denies constipation. GENITOURINARY: Denies difficulty urinating, painful urination, burning, frequency, or blood in urine. FEMALE GENITOURINARY: Denies vaginal bleeding, abnormal or irregular periods. MUSCULOSKELETAL: Denies body aches. Denies neck or back pain or joint pain or swelling. SKIN: Denies rash or skin lesions. HEMATOLOGIC : Denies easy bruising or bleeding. LYMPHATIC: Denies swollen, enlarged glands. NEUROLOGICAL: Positive for headaches. Denies altered mental status or loss of consciousness. Denies weakness or paralysis or loss of use of either side. Denies problems with gait or speech. Denies sensory or motor loss. PSYCHIATRIC: Denies anxiety or stress or depression. All other systems reviewed and negative. PHYSICAL EXAMINATION: GENERAL: Well-appearing, well-nourished and in no acute distress. HEAD: Atraumatic, normocephalic. No scalp deformity, depression, or crepitance. EYES: Pupils are 3 mm and equal/round/reactive to light, extraocular movements intact, sclera anicteric. Left conjunctiva has slight injection with clear ecchymosis from the eye, resistance and texture to the bilateral orbits. Visual acuity is equal bilaterally. Musa-Pen measurements are 12-16 bilaterally. ENT: Nares patent bilaterally, oropharynx clear without exudates or palatal petechia. Moist mucous membranes. No tonsil hypertrophy. NECK: Normal range of motion, supple without lymphadenopathy. LUNGS: Breath sounds present, equal, and clear to auscultation bilaterally. No wheezes, rales, or rhonchi. HEART: Regular rate and rhythm without murmurs, rubs, or gallops. 2+ peripheral pulses. Normal capillary refill. ABDOMEN: Soft, nontender, nondistended. Normoactive bowel sounds. No guarding, no rebound. No masses appreciated. BACK: Normal contour, no midline tenderness. Rectal exam deferred. PELVC: Deferred. EXTREMITIES: Normal range of motion, no pitting or edema. No cyanosis. NEUROLOGICAL: No focal neurological deficits. Cranial nerves III-XII grossly intact. Moves all extremities spontaneously and on command. PSYCH: Normal mood, normal affect. No suicidal thoughts/ideations. No sultana icidal thoughts/ideations. No hallucinations. SKIN: Warm, dry, normal turgor, no rashes or lesions noted. ASSESSMENT AND PLAN: This patient is a 28-year-old female who presents with facial swelling with left-sided headache which could represent acute sinusitis versus facial cellulitis versus viral syndrome. 1. Will obtain CT scan of the orbits/face per radiology recommendations as this is equally efficacious as MRI and the patient can be safely draped given her gestational age. 2. Will reassess except defaults. TRAVEL OUTSIDE OF THE [place] IN LAST 30 DAYS: No - Related Data Allergies/Adverse Reactions: Penicillins Allergy (Verified 06/06/18 11:58) hives, throat swelling Past Medical History - General Information source: Patient - Social History Smoking Status: Never Smoker Chew tobacco use (# tins/day): No Frequency of alcohol use: None Drug Abuse: None Lives with: Family Family History: Reviewed & Not Pertinent Patient has suicidal ideation: No Patient has homicidal ideation: No - Past Medical History Cardiac Medical History: Reports: None Pulmonary Medical History: Reports: Hx Asthma EENT Medical History: Reports: None Neurological Medical History: Reports: None Endocrine Medical History: Reports: None Renal/ Medical History: Reports: Hx Kidney Stones. Denies: Hx Peritoneal Dialysis Malignancy Medical History: Reports: None GI Medical History: Reports: None Musculoskeletal Medical History: Reports None Skin Medical History: Reports None Psychiatric Medical History: Reports: None Traumatic Medical History: Reports: None Infectious Medical History: Reports: None Surgical Hx: Negative Past Surgical History: Reports: None, Other - Microdiscectomy, 1 level. - Immunizations Immunizations up to date: Yes Hx Diphtheria, Pertussis, Tetanus Vaccination: Yes Physical Exam - Vital signs Vitals: Temp Pulse Resp BP Pulse Ox 98.1 F 108 H 16 134/70 H 98 07/25/18 18:58 07/25/18 18:58 07/25/18 18:58 07/25/18 18:58 07/25/18 18:58 Course - Re-evaluation Re-evalutation: 07/25/18 22:30 CT scan of the face and orbits reveals no evidence of facial cellulitis or periorbital cellulitis, orbits appear intact and normal without acute pathology. Patient will be discharged home with return precautions and follow-up as needed. Patient voices both understanding and agreeing with the plan. - Vital Signs Vital signs: Temp Pulse Resp BP Pulse Ox 98.1 F 108 H 16 134/70 H 98 07/25/18 18:58 07/25/18 18:58 07/25/18 18:58 07/25/18 18:58 07/25/18 18:58 - Diagnostic Test Radiology reviewed: Image reviewed, Reports reviewed Discharge - Discharge Clinical Impression: Acute sinusitis Qualifiers: Sinusitis location: unspecified location Recurrence: non-recurrent Qualified Code(s): J01.90 - Acute sinusitis, unspecified Condition: Good Disposition: HOME, SELF-CARE Instructions: Sinusitis ([facility]) Additional Instructions: You have been evaluated in the Emergency Department for headache with facial swelling and clear drainage from your left eye. While here, you had a CAT scan of your face/orbits that was normal and it is now safe to be discharged home. The most likely cause of your symptoms is sinusitis, which is inflammation of swelling of the sinuses, that can be either viral or bacterial but usually is allergy related. Please follow-up with your primary physician as instructed in 1 week to be rechecked. Return to the Emergency Department if you experience worsening headaches, vision changes, or any other concerning symptoms. Prescriptions: Ketotifen Fumarate [Zaditor] 5 ml OP BID #2 drops Print Language: Khmer
[2018-07-25] MEDS: TETRACAINE HCL 0.5% OPH SOLN 4 ML OD ONE ×2 (20:25→20:30)
--- NOTE | 2018-07-25 21:43 | RADIOLOGY REPORT (SQ) ---
EXAM DESCRIPTION: CT MAXILLOFACIAL WITHOUT IV CONTRAST COMPLETED DATE/TME: 07/25/2018 20:53 CLINICAL HISTORY: 28 years, Female, Facial swelling COMPARISON: None. TECHNIQUE: Noncontrast CT of the face was performed. Coronal and sagittal reformations were created. Images stored on PACS. All CT scanners at this facility use dose modulation, iterative reconstruction, and/or weight based dosing when appropriate to reduce radiation dose to as low as reasonably achievable (ALARA). [facility]: Dose Right [facility]: CareDose [facility]: Dose Right [facility]: Teradose 4D [facility]: [employer] LIMITATIONS: None. FINDINGS: The mandible is intact. The medial and lateral pterygoid plates are intact. The zygomatic arches are intact. The nasal bone is intact. The nasal septum is mildly deviated towards the right. The bilateral nasal alae appear intact. Minimal mucosal thickening is noted about the bilateral maxillary antra with additional mild opacity in the right ethmoidal air cells. There is also mild mucosal thickening within the sphenoid cellules. Frontal sinuses and mastoid air cells appear clear. Visualized portions of the brain parenchyma show no suspicious abnormality. The globes and orbits show no acute abnormality. The extraocular muscles appear symmetric bilaterally. The premaxillary soft tissues appear within normal limits. No suspicious soft tissue swelling is identified. Visualized portions of the hypopharynx, oropharynx, and nasopharynx appear within normal limits. The bilateral parotid and submandibular glands appear normal. A borderline enlarged right level IIa lymph node is noted measuring 0.9 cm in short axis, nonspecific. Several additional mildly prominent bilateral level IIa and IIb lymph nodes are noted. IMPRESSION: No acute abnormality within the imaged phase. Specifically, no clear evidence of facial soft tissue swelling or acute orbital abnormality. Mild paranasal sinus disease, as above. TECHNICAL DOCUMENTATION: Quality ID # [id number]: Final reports with documentation of one or more dose reduction techniques (e.g., Automated exposure control, adjustment of the mA and/or kV according to patient size, use of iterative reconstruction technique) copyright 2011 [employer]- All Rights Reserved
[2018-07-25 22:52] VITALS: BP 105/57
== END 2018-07-25 22:52 | disposition home or self-care (01) ==
LOC: ER 18:40
DX: O99.512 Diseases of the respiratory system complicating pregnancy, second trimester (principal); J01.90 Acute sinusitis, unspecified; J45.909 Unspecified asthma, uncomplicated; O26.892 Other specified pregnancy related conditions, second trimester; R51 Headache; R09.81 Nasal congestion; H57.89 Other specified disorders of eye and adnexa; O30.002 Twin pregnancy, unspecified number of placenta and unspecified number of amniotic sacs, second trimester; Z3A.21 21 weeks gestation of pregnancy; Z88.0 Allergy status to penicillin
CPT/HCPCS: 70486; 99283; J3490

== ENCOUNTER 2018-09-01 13:11 | Outpatient (CLI) | payer OTHER ==
[2018-09-01] MEDS ORDERED: FERRIC CARBOXYMALTOSE 750 MG in NORMAL SALINE 250 ML IV PRN (13:24)
[2018-09-01] MEDS ORDERED: NORMAL SALINE 250 ML IV PRN (13:25)
[2018-09-01 13:48] VITALS: BP 105/59
== END 2018-09-01 14:29 | disposition home or self-care (01) ==
LOC: II 13:11 → 5TH 13:15 → II 14:29
PROVIDERS: ATTEND Internal Medicine Hematology & Oncology
PROC: 3E033GC Introduction of Other Therapeutic Substance into Peripheral Vein, Percutaneous Approach (ICD-10-PCS; principal; 2018-09-01)
DX: D50.9 Iron deficiency anemia, unspecified (principal); K90.9 Intestinal malabsorption, unspecified
CPT/HCPCS: 96365; J7050; J1439

== ENCOUNTER 2018-09-08 00:57 | Outpatient (CLI) | payer OTHER ==
[2018-09-08 02:16] LABS: APPEARANCE,URINE SLIGHTLY-CLOUDY; BILIRUBIN,URINE NEGATIVE (NEGATIVE); COLOR,URINE YELLOW; GLUCOSE, URINE NEGATIVE (NEGATIVE); KETONES,URINE NEGATIVE (NEGATIVE); LEUKOCYTE ESTERASE,URINE NEGATIVE (NEGATIVE); NITRITE,URINE NEGATIVE (NEGATIVE); PROTEIN,URINE NEGATIVE (NEGATIVE); URINE SPECIFIC GRAVITY 1.014; UROBILINOGEN,URINE NEGATIVE mg/dL (<2.0)
[2018-09-08 02:27] LABS: URINE AMPHETAMINES SCREEN NEGATIVE; URINE BARBITURATES SCREEN NEGATIVE; URINE BENZODIAZEPINES SCREEN NEGATIVE; URINE COCAINE SCREEN NEGATIVE; URINE MARIJUANA (THC) SCREEN NEGATIVE; URINE METHADONE SCREEN NEGATIVE; URINE PHENCYCLIDINE SCREEN NEGATIVE
== END 2018-09-08 03:50 | disposition home or self-care (01) ==
LOC: LC 00:57
PROVIDERS: ATTEND Obstetrics & Gynecology
PROC: 4A1HXCZ Monitoring of Products of Conception, Cardiac Rate, External Approach (ICD-10-PCS; principal; 2018-09-08)
DX: O36.8120 Decreased fetal movements, second trimester, not applicable or unspecified (principal); Z3A.26 26 weeks gestation of pregnancy
CPT/HCPCS: 80307; 81001; 87086

== ENCOUNTER 2018-09-08 13:00 | Outpatient (CLI) | payer OTHER ==
[~2018-09-08 13:00] MED LIST: FERRIC CARBOXYMALTOSE 750 MG in NORMAL SALINE 250 ML IV PRN; NORMAL SALINE 250 ML IV PRN
[2018-09-08 13:27] VITALS: BP 105/54
== END 2018-09-08 14:45 | disposition home or self-care (01) ==
LOC: II 13:00 → 5TH 13:01 → II 14:45
PROVIDERS: ATTEND Internal Medicine Hematology & Oncology
PROC: 3E033GC Introduction of Other Therapeutic Substance into Peripheral Vein, Percutaneous Approach (ICD-10-PCS; principal; 2018-09-08)
DX: D50.9 Iron deficiency anemia, unspecified (principal); K90.9 Intestinal malabsorption, unspecified
CPT/HCPCS: 96365; J7050; J1439

== ENCOUNTER → 2018-09-19 | Outpatient (CLI) | payer OTHER ==
[2018-09-19 14:57] LABS: ALANINE AMINOTRANSFERASE 24 U/L (9-52); ALBUMIN 3.2 g/dL (3.5-5.0); ALKALINE PHOSPHATASE 129 U/L (38-126); ANION GAP 6 (5-19); ASPARTATE AMINO TRANSFERASE 16 U/L (14-36); BILIRUBIN,DIRECT 0.2 mg/dL (0.0-0.4); BILIRUBIN,TOTAL 0.2 mg/dL (0.2-1.3); BLOOD UREA NITROGEN 4 mg/dL (7-20); CALCIUM 8.8 mg/dL (8.4-10.2); CARBON DIOXIDE 25 mmol/L (22-30); CHLORIDE 107 mmol/L (98-107); GLUCOSE 81 mg/dL (75-110); POTASSIUM 3.8 mmol/L (3.6-5.0); SODIUM 137.7 mmol/L (137-145); TOTAL PROTEIN 5.8 g/dL (6.3-8.2)
== END ==
LOC: OD 14:08
PROVIDERS: ATTEND Student in an Organized Health Care Education/Training Program
DX: O30.002 Twin pregnancy, unspecified number of placenta and unspecified number of amniotic sacs, second trimester (principal); Z3A.00 Weeks of gestation of pregnancy not specified; L29.9 Pruritus, unspecified
CPT/HCPCS: 36415; 80053; 82239

== ENCOUNTER 2018-09-22 14:26 | Outpatient (CLI) | payer OTHER ==
[2018-09-22 15:25] LABS: APPEARANCE,URINE SLIGHTLY-CLOUDY; BILIRUBIN,URINE NEGATIVE (NEGATIVE); COLOR,URINE YELLOW; GLUCOSE, URINE NEGATIVE (NEGATIVE); KETONES,URINE NEGATIVE (NEGATIVE); LEUKOCYTE ESTERASE,URINE NEGATIVE (NEGATIVE); NITRITE,URINE NEGATIVE (NEGATIVE); PROTEIN,URINE 30 mg/dL (NEGATIVE); URINE SPECIFIC GRAVITY 1.017; UROBILINOGEN,URINE NEGATIVE mg/dL (<2.0)
[2018-09-22 15:55] LABS: URINE AMPHETAMINES SCREEN NEGATIVE; URINE BARBITURATES SCREEN NEGATIVE; URINE BENZODIAZEPINES SCREEN NEGATIVE; URINE COCAINE SCREEN NEGATIVE; URINE MARIJUANA (THC) SCREEN NEGATIVE; URINE METHADONE SCREEN NEGATIVE; URINE PHENCYCLIDINE SCREEN NEGATIVE
== END 2018-09-22 15:52 | disposition home or self-care (01) ==
LOC: LC 14:26
PROVIDERS: ATTEND Student in an Organized Health Care Education/Training Program
PROC: 4A1HXCZ Monitoring of Products of Conception, Cardiac Rate, External Approach (ICD-10-PCS; principal; 2018-09-22)
DX: O36.8130 Decreased fetal movements, third trimester, not applicable or unspecified (principal); Z3A.28 28 weeks gestation of pregnancy
CPT/HCPCS: 80307; 81001

== ENCOUNTER 2018-10-23 00:01 | Outpatient (CLI) | payer OTHER ==
[2018-10-23 01:09] LABS: APPEARANCE,URINE HAZY; BILIRUBIN,URINE NEGATIVE (NEGATIVE); COLOR,URINE YELLOW; GLUCOSE, URINE NEGATIVE (NEGATIVE); KETONES,URINE NEGATIVE (NEGATIVE); LEUKOCYTE ESTERASE,URINE NEGATIVE (NEGATIVE); NITRITE,URINE NEGATIVE (NEGATIVE); PROTEIN,URINE NEGATIVE (NEGATIVE); URINE SPECIFIC GRAVITY 1.014; UROBILINOGEN,URINE NEGATIVE mg/dL (<2.0)
[2018-10-23] MEDS ORDERED: NIFEDIPINE 10 MG CAPSULE PO ONE (01:30)
[2018-10-23] MEDS ORDERED: NIFEDIPINE 10 MG CAPSULE ONE (01:31)
[2018-10-23] MEDS ORDERED: RINGERS SOLUTION,LACTATED 1,000 ML IV PRN (01:56)
[2018-10-23 02:14] LABS: URINE AMPHETAMINES SCREEN NEGATIVE; URINE BARBITURATES SCREEN NEGATIVE; URINE BENZODIAZEPINES SCREEN NEGATIVE; URINE COCAINE SCREEN NEGATIVE; URINE MARIJUANA (THC) SCREEN NEGATIVE; URINE METHADONE SCREEN NEGATIVE; URINE PHENCYCLIDINE SCREEN NEGATIVE
[2018-10-23] MEDS ORDERED: NALBUPHINE HCL INJ 10 MG/1 ML AMPULE INJ ONE (03:05)
[2018-10-23] MEDS ORDERED: NALBUPHINE HCL INJ 10 MG/1 ML AMPULE ONE (03:11)
--- NOTE | 2018-10-23 05:18 | Non Stress Test Report ---
Non Stress Test Datetime Report Generated by CPN: 10/23/2018 05:17 DEMOGRAPHIC EGA NST: 33.1 INDICATION Indication for Study: Ordered by Provider Indication for Study (NST) Other: LC URINE RESULTS Urine Protein, NST: Negative Urine Ketones - NST: Negative Urine Glucose - NST: Negative Urine Blood - NST: Positive MONITORING Monitor Explained: Monitor Explained; Test Explained; Patient Verbalized Understanding Time on Monitor: 10/23/2018 00:25 Time off Monitor: 10/23/2018 02:57 NST Duration: 152 NST INTERVENTIONS NST Interventions: PO Hydration; IV Fluids Physician Notified NST: KVal Alejandro. OCCUPATIONAL THERAPY SPECIALIST A: [id number] BABY A Movement : Present Contraction Frequency : 1-6 FHR Baseline : 155 Accelerations : 15X15 Decelerations : None Variability : Moderate 6-25bpm NST Review: Meets Criteria for Reactive NST NST Review and Verified By : NDoyle RN NST Results: Reactive BABY B Movement: Present FHR Baseline: 145 Accelerations: 15X15 Decelerations: None Variability: Moderate 6-25bpm NST Review: Meets Criteria for Reactive NST NST Reviewed And Verified By: NDoyle RN NST Results: Reactive NST REPORT Report Trigger: Send Report
== END 2018-10-23 03:26 | disposition home or self-care (01) ==
LOC: LC 00:01
PROVIDERS: ATTEND Student in an Organized Health Care Education/Training Program
PROC: 4A1HXCZ Monitoring of Products of Conception, Cardiac Rate, External Approach (ICD-10-PCS; principal; 2018-10-23)
DX: O47.03 False labor before 37 completed weeks of gestation, third trimester (principal); Z3A.33 33 weeks gestation of pregnancy
CPT/HCPCS: 59025 ×2; 81001; 80307; 84112; J2300; J3490

== ENCOUNTER 2018-11-04 23:14 | Outpatient (CLI) | payer OTHER ==
[2018-11-05 00:13] LABS: APPEARANCE,URINE CLEAR; BILIRUBIN,URINE NEGATIVE (NEGATIVE); COLOR,URINE YELLOW; GLUCOSE, URINE NEGATIVE (NEGATIVE); KETONES,URINE NEGATIVE (NEGATIVE); LEUKOCYTE ESTERASE,URINE NEGATIVE (NEGATIVE); NITRITE,URINE NEGATIVE (NEGATIVE); PROTEIN,URINE NEGATIVE (NEGATIVE); URINE SPECIFIC GRAVITY 1.008; UROBILINOGEN,URINE NEGATIVE mg/dL (<2.0)
[2018-11-05 00:23] LABS: URINE AMPHETAMINES SCREEN NEGATIVE; URINE BARBITURATES SCREEN NEGATIVE; URINE BENZODIAZEPINES SCREEN NEGATIVE; URINE COCAINE SCREEN NEGATIVE; URINE MARIJUANA (THC) SCREEN NEGATIVE; URINE METHADONE SCREEN NEGATIVE; URINE PHENCYCLIDINE SCREEN NEGATIVE
== END 2018-11-05 02:22 | disposition home or self-care (01) ==
LOC: LC 23:14
PROVIDERS: ATTEND Obstetrics & Gynecology
PROC: 4A1HXCZ Monitoring of Products of Conception, Cardiac Rate, External Approach (ICD-10-PCS; principal; 2018-11-04)
DX: O47.03 False labor before 37 completed weeks of gestation, third trimester (principal); Z3A.34 34 weeks gestation of pregnancy
CPT/HCPCS: 59025; 80307; 81001

== ENCOUNTER 2018-11-10 02:25 | Outpatient (CLI) | payer OTHER ==
[2018-11-10 03:26] LABS: APPEARANCE,URINE CLEAR; BILIRUBIN,URINE NEGATIVE (NEGATIVE); COLOR,URINE YELLOW; GLUCOSE, URINE NEGATIVE (NEGATIVE); KETONES,URINE NEGATIVE (NEGATIVE); LEUKOCYTE ESTERASE,URINE NEGATIVE (NEGATIVE); NITRITE,URINE NEGATIVE (NEGATIVE); PROTEIN,URINE NEGATIVE (NEGATIVE); URINE SPECIFIC GRAVITY 1.009; UROBILINOGEN,URINE NEGATIVE mg/dL (<2.0)
[2018-11-10 03:44] LABS: URINE AMPHETAMINES SCREEN NEGATIVE; URINE BARBITURATES SCREEN NEGATIVE; URINE BENZODIAZEPINES SCREEN NEGATIVE; URINE COCAINE SCREEN NEGATIVE; URINE MARIJUANA (THC) SCREEN NEGATIVE; URINE METHADONE SCREEN NEGATIVE; URINE PHENCYCLIDINE SCREEN NEGATIVE
--- NOTE | 2018-11-10 07:02 | Non Stress Test Report ---
Non Stress Test Datetime Report Generated by CPN: 11/10/2018 05:42 DEMOGRAPHIC EGA NST: 35.5 INDICATION Indication for Study: Decreased Movement; Ordered by Provider VITAL SIGNS Temperature - NST: 98.2 Pulse - NST: 89 RESP - NST: 17 NBPSYS NST: 126 NBPDIA NST: 72 MONITORING Monitor Explained: Monitor Explained; Test Explained; Patient Verbalized Understanding Time on Monitor: 11/10/2018 03:26 Time off Monitor: 11/10/2018 04:51 NST Duration: 85 NST INTERVENTIONS NST Interventions: PO Hydration Physician Notified NST: Dr. Alejandro BABY A Movement : Present Contraction Frequency : irregular FHR Baseline : 155 Accelerations : 15X15 Decelerations : None Variability : Moderate 6-25bpm NST Review: Meets Criteria for Reactive NST NST Review and Verified By : E. Jilek RN NST Results: Reactive BABY B Movement: Present FHR Baseline: 145 Accelerations: 15X15 Decelerations: None Variability: Moderate 6-25bpm NST Review: Meets Criteria for Reactive NST NST Results: Reactive NST REPORT Report Trigger: Send Report
== END 2018-11-10 05:36 | disposition home or self-care (01) ==
LOC: LC 02:25
PROVIDERS: ATTEND Student in an Organized Health Care Education/Training Program
PROC: 4A1HXCZ Monitoring of Products of Conception, Cardiac Rate, External Approach (ICD-10-PCS; principal; 2018-11-10)
DX: O36.8130 Decreased fetal movements, third trimester, not applicable or unspecified (principal); Z3A.35 35 weeks gestation of pregnancy
CPT/HCPCS: 59025; 80307; 81001

== ENCOUNTER 2018-11-13 15:24 | Outpatient (CLI) | payer OTHER | END 2018-11-13 17:05 | disposition home or self-care (01) | LOC: LC 15:24 | PROVIDERS: ATTEND Obstetrics & Gynecology | PROC: 4A1HXCZ Monitoring of Products of Conception, Cardiac Rate, External Approach (ICD-10-PCS; principal; 2018-11-13) | DX: Z34.93 Encounter for supervision of normal pregnancy, unspecified, third trimester (principal) | CPT/HCPCS: 59025 ==

== ENCOUNTER → 2019-12-19 | Outpatient (CLI) | payer OTHER ==
--- NOTE | 2019-12-19 16:08 | RADIOLOGY REPORT (SQ) ---
EXAM DESCRIPTION: CHEST PA/LATERAL IMAGES COMPLETED DATE/TIME: 12/19/2019 4:01 pm REASON FOR STUDY: PERSISTENT COUGH COMPARISON: None. EXAM PARAMETERS: NUMBER OF VIEWS: two views TECHNIQUE: Digital Frontal and Lateral radiographic views of the chest acquired. RADIATION DOSE: NA LIMITATIONS: none FINDINGS: LUNGS AND PLEURA: No opacities, masses or pneumothorax. No pleural effusion. MEDIASTINUM AND HILAR STRUCTURES: No masses or contour abnormalities. HEART AND VASCULAR STRUCTURES: Heart normal size. No evidence for failure. BONES: No acute findings. HARDWARE: None in the chest. OTHER: No other significant finding. IMPRESSION: NO SIGNIFICANT RADIOGRAPHIC FINDING IN THE CHEST. TECHNICAL DOCUMENTATION: JOB ID: [id number] 2010 [employer]- All Rights Reserved Reading location - IP/workstation name: [email or web address]
== END ==
LOC: RAD 15:21
PROVIDERS: ATTEND Nurse Practitioner Acute Care
DX: R05 Cough (principal)
CPT/HCPCS: 71046

== ENCOUNTER → 2020-05-01 | Outpatient (CLI) | payer OTHER ==
[2020-05-01 16:17] LABS: ABSOLUTE BASOPHILS # (AUTO) 0.1 10^3/uL (0.0-0.2); ABSOLUTE EOSINOPHILS # (AUTO) 0.1 10^3/uL (0.0-0.6); ABSOLUTE LYMPHOCYTES (AUTO) 2.8 10^3/uL (0.5-4.7); ABSOLUTE MONOCYTES (AUTO) 0.5 10^3/uL (0.1-1.4); ABSOLUTE NEUT (AUTO) 6.4 10^3/uL (1.7-8.2); BASOPHILS % (AUTO) 0.9 % (0-2); EOSINOPHILS % (AUTO) 1.3 % (0-6); HEMATOCRIT 43.2 % (36.0-47.0); HEMOGLOBIN 14.8 g/dL (12.0-15.5); LYMPHOCYTES % (AUTO) 27.9 % (13-45); MEAN CORPUSCULAR HEMOGLOBIN 29.8 pg (27.0-33.4); MEAN CORPUSCULAR HGB CONC 34.2 g/dL (32.0-36.0); MEAN CORPUSCULAR VOLUME 87 fl (80-97); MONOCYTES % (AUTO) 5.5 % (3-13); PLATELET COUNT 395 10^3/uL (150-450); RED BLOOD COUNT 4.96 10^6/uL (3.72-5.28); RED CELL DISTRIBUTION WIDTH 13.7 % (11.5-14.0); SEGMENTED NEUTROPHILS % (AUTO) 64.4 % (42-78); TOTAL CELLS COUNTED % (AUTO) 100 %; WHITE BLOOD COUNT 9.9 10^3/uL (4.0-10.5)
[2020-05-01 16:36] LABS: ALBUMIN 4.8 g/dL (3.5-5.0); ALKALINE PHOSPHATASE 104 U/L (38-126); ANION GAP 9 (5-19); ASPARTATE AMINO TRANSFERASE 29 U/L (14-36); BILIRUBIN,DIRECT 0.2 mg/dL (0.0-0.4); BILIRUBIN,TOTAL 0.4 mg/dL (0.2-1.3); BLOOD UREA NITROGEN 15 mg/dL (7-20); CALCIUM 10.3 mg/dL (8.4-10.2); CARBON DIOXIDE 27 mmol/L (22-30); CHLORIDE 102 mmol/L (98-107); GLUCOSE 89 mg/dL (75-110); POTASSIUM 4.9 mmol/L (3.6-5.0); TOTAL PROTEIN 7.9 g/dL (6.3-8.2)
[2020-05-01 16:56] LABS: ERYTHROCYTE SEDIMENTATION RATE 21 mm/hr (0-20)
== END ==
LOC: CCC 15:37
PROVIDERS: ATTEND Family Medicine
DX: M54.5 Low back pain (principal); M79.7 Fibromyalgia
CPT/HCPCS: 36415; 80053; 82164; 83036; 84443; 85025; 85652; 86038; 86200; 86431

== ENCOUNTER → 2020-05-01 | Outpatient (CLI) | payer OTHER ==
--- NOTE | 2020-05-01 14:41 | RADIOLOGY REPORT (SQ) ---
EXAM DESCRIPTION: CHEST 2 VIEWS IMAGES COMPLETED DATE/TIME: 05/01/2020 2:31 pm REASON FOR STUDY: (R07.89)OTHER CHEST PAIN COMPARISON: 12/19/2019 EXAM PARAMETERS: NUMBER OF VIEWS: two views TECHNIQUE: Digital Frontal and Lateral radiographic views of the chest acquired. RADIATION DOSE: NA LIMITATIONS: none FINDINGS: LUNGS AND PLEURA: No opacities, masses or pneumothorax. No pleural effusion. MEDIASTINUM AND HILAR STRUCTURES: No masses or contour abnormalities. HEART AND VASCULAR STRUCTURES: Heart normal size. No evidence for failure. BONES: No acute findings. HARDWARE: None in the chest. OTHER: No other significant finding. IMPRESSION: NO ACUTE RADIOGRAPHIC FINDING IN THE CHEST. TECHNICAL DOCUMENTATION: JOB ID: [id number] 2010 [employer]- All Rights Reserved Reading location - IP/workstation name: [email or web address]
--- NOTE | 2020-05-02 20:13 | XCELERA REPORT ---
[address] [address] Transthoracic Echocardiogram Report Name: MARLI HOROWITZ Age: 29 yrs Gender: Female : 1990 Patient Status: Outpatient Patient Location: Study Date: 05/01/2020 02:53 PM Height: 59 in Weight: 178 lb BSA: 1.8 m2 Procedure: A two-dimensional transthoracic echocardiogram with color flow and Doppler was performed. Images were not obtained from all of the standard acoustic windows due to the limited scope of the study. Reason For Study: CHEST PAIN History: CHEST PAIN. Ordering Physician: FRANCHESCA ROJAS Performed By: Jayde Chávez Interpretation Summary The left ventricle is normal in size. There is normal left ventricular wall thickness. No True apical 2 chamber views obtained.Hence cannot comment on the apical anterior , the basal anterior, the basal inferior and apical inferior ennis.The mid anterior , the mid inferior and the rest of the LV ennis contract normally. . LVEF is normal and is greater than 60% in the limited views. Doppler measurements suggest normal left ventricular diastolic function There is no thrombus. NOo ASD,VSD,or PFO seen. The right ventricle is normal in size and function. The right atrium is normal. The left atrial size is normal. There is no evidence of mitral valve prolapse. There is no vegetation seen on the mitral valve. There is no mitral valve stenosis. There is no mitral regurgitation noted. There is no aortic valvular vegetation. There is no aortic valve stenosis No aortic regurgitation is present. There is no tricuspid stenosis. No tricuspid regurgitation. Tricuspid regurgitation jet envelope not well defined to measure RV systolic pressure accurately. There is no pulmonic valvular stenosis. There is a trace amount of pulmonic regurgitation The aortic root is normal size. The inferior vena cava appeared normal and decreased > 50% with respiration (RAP 5-10 mmHg) There is no pericardial effusion. MMode/2D Measurements & Calculations RVDd: 1.7 cm LVIDd: 4.1 cm FS: 28.4 % Ao root diam: 2.5 cm IVSd: 0.79 cm LVIDs: 3.0 cm EDV(Teich): 76.2 ml Ao root area: 4.8 cm2 LVPWd: 0.76 cm ESV(Teich): 34.2 ml EF(Teich): 55.2 % Doppler Measurements & Calculations MV E max lion: MV dec slope: Ao V2 max: LV V1 max P.7 cm/sec 323.9 cm/sec2 93.6 cm/sec 3.2 mmHg MV A max lion: MV dec time: 0.18 sec Ao max PG: LV V1 max: 52.4 cm/sec 3.5 mmHg 89.6 cm/sec MV E/A: 1.1 PA V2 max: PI end-d lion: 60.7 cm/sec 103.7 cm/sec PA max P.5 mmHg Left Ventricle The left ventricle is normal in size. There is normal left ventricular wall thickness. No True apical 2 chamber views obtained.Hence cannot comment on the apical anterior , the basal anterior, the basal inferior and apical inferior ennis.The mid anterior , the mid inferior and the rest of the LV ennis contract normally. . LVEF is normal and is greater than 60% in the limited views. Doppler measurements suggest normal left ventricular diastolic function. There is no thrombus. NOo ASD,VSD,or PFO seen. Right Ventricle The right ventricle is normal in size and function. Atria The right atrium is normal. The left atrial size is normal. Mitral Valve There is no evidence of mitral valve prolapse. There is no vegetation seen on the mitral valve. There is no mitral valve stenosis. There is no mitral regurgitation noted. Aortic Valve There is no aortic valvular vegetation. There is no aortic valve stenosis. No aortic regurgitation is present. Tricuspid Valve There is no tricuspid stenosis. No tricuspid regurgitation. Tricuspid regurgitation jet envelope not well defined to measure RV systolic pressure accurately. Pulmonic Valve There is no pulmonic valvular stenosis. There is a trace amount of pulmonic regurgitation. Great Vessels The aortic root is normal size. The inferior vena cava appeared normal and decreased > 50% with respiration (RAP 5-10 mmHg). Effusions There is no pericardial effusion. : FRANCHESCA ROJAS Lakshmi
== END ==
LOC: SP 14:12
PROVIDERS: ATTEND Internal Medicine Pulmonary Disease
DX: R07.89 Other chest pain (principal)
CPT/HCPCS: 71046; 93306

== ENCOUNTER → 2020-05-08 | Outpatient (CLI) | payer OTHER ==
[2020-05-08 18:10] LABS: ABSOLUTE BASOPHILS # (AUTO) 0.1 10^3/uL (0.0-0.2); ABSOLUTE EOSINOPHILS # (AUTO) 0.2 10^3/uL (0.0-0.6); ABSOLUTE MONOCYTES (AUTO) 0.5 10^3/uL (0.1-1.4); ABSOLUTE NEUT (AUTO) 7.1 10^3/uL (1.7-8.2); BASOPHILS % (AUTO) 0.5 % (0-2); EOSINOPHILS % (AUTO) 1.4 % (0-6); HEMATOCRIT 38.2 % (36.0-47.0); HEMOGLOBIN 12.9 g/dL (12.0-15.5); LYMPHOCYTES % (AUTO) 27.6 % (13-45); MEAN CORPUSCULAR HEMOGLOBIN 29.8 pg (27.0-33.4); MEAN CORPUSCULAR HGB CONC 33.8 g/dL (32.0-36.0); MEAN CORPUSCULAR VOLUME 88 fl (80-97); MONOCYTES % (AUTO) 4.4 % (3-13); PLATELET COUNT 456 10^3/uL (150-450); RED BLOOD COUNT 4.33 10^6/uL (3.72-5.28); RED CELL DISTRIBUTION WIDTH 14.1 % (11.5-14.0); SEGMENTED NEUTROPHILS % (AUTO) 66.1 % (42-78); TOTAL CELLS COUNTED % (AUTO) 100 %; WHITE BLOOD COUNT 10.8 10^3/uL (4.0-10.5)
[2020-05-08 18:17] LABS: INTERNATIONAL RATION (INR) 0.77
[2020-05-08 18:35] LABS: ALBUMIN 4.4 g/dL (3.5-5.0); ALKALINE PHOSPHATASE 124 U/L (38-126); ANION GAP 9 (5-19); ASPARTATE AMINO TRANSFERASE 30 U/L (14-36); BILIRUBIN,DIRECT 0.2 mg/dL (0.0-0.4); BILIRUBIN,TOTAL 0.2 mg/dL (0.2-1.3); BLOOD UREA NITROGEN 12 mg/dL (7-20); CALCIUM 9.8 mg/dL (8.4-10.2); CARBON DIOXIDE 28 mmol/L (22-30); CHLORIDE 100 mmol/L (98-107); GLUCOSE 96 mg/dL (75-110); POTASSIUM 4.3 mmol/L (3.6-5.0); TOTAL PROTEIN 7.5 g/dL (6.3-8.2)
[2020-05-08 18:48] LABS: ERYTHROCYTE SEDIMENTATION RATE 28 mm/hr (0-20)
== END ==
LOC: OD 15:46
PROVIDERS: ATTEND Internal Medicine Pulmonary Disease
DX: E04.9 Nontoxic goiter, unspecified (principal); R07.89 Other chest pain
CPT/HCPCS: 36415; 80053; 83516; 84436; 84443; 85025; 85610; 85652; 85730; 86141; 86256